=== PATIENT | male | born 1940 | race Caucasian/White ===

== ENCOUNTER 2017-08-11 12:24 | Outpatient (CLI) | payer MEDICARE, BC ==
[2017-08-11 12:55] LABS: CRP (Inflammatory) Less than 0.50 mg/dL (= or < 0.5)
[2017-08-11 13:42] LABS: Hemoglobin 12.1 g/dL (14.0-18.0); Mean Corpuscular HGB CONC 32.2 g/dL (32.0-36.0); Mean Corpuscular Hemoglobin 35.1 pg (27.0-31.0); Mean Platelet Volume 8.4 fL (7.4-10.4); Platelet Count 145 thou/uL (130-400); RBC Distribution Width 12.1 % (11.5-14.5); Red Blood Cell (RBC) Count 3.44 mill/uL (4.70-6.10); White Blood Cell (WBC) Count 5.6 thou/uL (4.8-10.8)
== END 2017-08-11 12:25 | disposition home or self-care (01) ==
LOC: NAVSJIPCSP 12:24
PROVIDERS: ATTEND Podiatrist Foot & Ankle Surgery
DX: R60.9 Edema, unspecified (principal)
CPT/HCPCS: 36415; 84550; 85027; 85652; 86140

== ENCOUNTER 2020-10-24 22:35 | Emergency (ER) | payer MEDICARE, BC ==
[2020-10-24] MEDS ORDERED: Ibuprofen 800 MG TAB ONE (23:09)
[2020-10-24] MEDS ORDERED: Sodium Chloride 0.9% 1,000 ML ONE (23:09)
[2020-10-24 23:16] LABS: #Basophils 0.1 thou/uL (0.0-0.2); #Eosinphils 0.1 thou/uL (0.0-0.7); #Lymphocytes 0.2 thou/uL (1.20-3.40); #Monocytes 0.5 thou/uL (0.11-0.59); #Neutrophils 11.2 thou/uL (1.40-6.50); %Basophils 0.5 % (0.0-1.0); %Eosinophils 1.2 % (0.0-10.0); %Lymphocytes 1.7 % (21.0-51.0); %Monocytes 4.1 % (0.0-10.0); %Neutrophils 92.4 % (42.0-75.0); Hemoglobin 12.9 g/dL (14.0-18.0); Mean Corpuscular HGB CONC 32.5 g/dL (32.0-36.0); Mean Corpuscular Hemoglobin 33.9 pg (27.0-31.0); Mean Platelet Volume 7.5 fL (7.4-10.4); Platelet Count 176 thou/uL (130-400); RBC Distribution Width 13.2 % (11.5-14.5); Red Blood Cell (RBC) Count 3.81 mill/uL (4.70-6.10); White Blood Cell (WBC) Count 12.1 thou/uL (4.8-10.8)
[2020-10-24 23:34] LABS: ALT (SGPT) 9 U/L (8-55); AST (SGOT) 15 U/L (5-34); Albumin 3.5 g/dL (3.4-4.8); Alkaline Phosphatase 70 U/L (40-110); Anion Gap 15 mmol/L (10-20); BUN (Urea Nitrogen) 12 mg/dL (8.4-25.7); Bilirubin, Total 0.6 mg/dL (0.2-1.2); Calc. Creatinine Clearance 0 mL/min (70-130); Calcium 8.3 mg/dL (7.8-10.44); Carbon Dioxide 20 mmol/L (23-31); Chloride 109 mmol/L (98-107); Globulin 2.7 g/dL (2.4-3.5); Glucose 117 mg/dL (83-110); Potassium 3.6 mmol/L (3.5-5.1); Protein, Total 6.2 g/dL (5.8-8.1); Sodium 140 mmol/L (136-145)
[2020-10-25] MEDS ORDERED: Sodium Chloride 0.9% 1,000 ML ONE (00:30)
[2020-10-25 00:50] LABS: Clarity Clear (Clear)
[2020-10-25 00:51] LABS: Leukocyte Unable to Interpret (Negative); Nitrite Unable to Interpret (Negative)
[2020-10-25 00:52] LABS: Bilirubin Unable to Interpret (Negative); Blood, Urine Unable to Interpret (Negative); Glucose, Urine (Dipstick) Unable to Interpret mg/dL (Negative); Ketone, Urine Unable to Interpret mg/dL (Negative); Protein, Urine (Dipstick) Unable to Interpret mg/dL (Neg-Trace); Urobilinogen UNABLE TO INTERPRET mg/dL (Less than 2)
[2020-10-25 00:54] LABS: Bacteria/HPF 2+ HPF (None Seen)
[2020-10-25] MEDS ORDERED: Cefepime 2 GM VIAL ONE (01:07)
[2020-10-25] MEDS ORDERED: Sodium Chloride 0.9% 100 ML ONE (01:07)
[2020-10-25] MEDS ORDERED: Acetaminophen 325 MG TAB PO PRN (02:45)
[2020-10-25] MEDS ORDERED: Sodium Chloride 0.9% 1,000 ML IV SCH (02:45)
[2020-10-25 02:46] LABS: SARS-CoV-2 NAA Rapid Test Not Detected (NotDetected)
== END 2020-10-25 01:51 | disposition critical access hospital (66) ==
LOC: NAV ERS 22:35
DX: A41.9 Sepsis, unspecified organism (principal); N39.0 Urinary tract infection, site not specified; Z20.828 Contact with and (suspected) exposure to other viral communicable diseases; I10 Essential (primary) hypertension; E78.00 Pure hypercholesterolemia, unspecified; Z79.899 Other long term (current) drug therapy; Z79.82 Long term (current) use of aspirin
CPT/HCPCS: 0240U; 80053; 81001; 83605; 84484; 85025; 87040; 87077; 87086; 87149; 93005; J0692; J3490; J7050

== ENCOUNTER 2020-10-25 01:48 | Inpatient (IN) | payer MEDICARE, BC ==
[2020-10-25] MEDS: Sodium Chloride 0.9% 1,000 ML IV SCH ×2 (04:08→09:00)
[2020-10-25] MEDS: Lisinopril 20 MG TAB PO SCH ×2 (08:56→19:59)
[2020-10-25] MEDS: Apixaban 5 MG TAB PO SCH ×2 (08:56→19:59)
[2020-10-25] MEDS: Carvedilol 6.25 MG TAB PO SCH ×2 (08:56→20:03)
[2020-10-25] MEDS: Amlodipine 5 MG TAB PO SCH (08:57)
[2020-10-25] MEDS: Ondansetron ODT 4 MG TAB PO PRN ×2 (09:00→22:08)
--- NOTE | 2020-10-25 10:20 | HP ---
HISTORY OF PRESENT ILLNESS: This is a 80-year-old male, who presented to [facility]'s ER with fever, chills, and hematuria. The patient was worked up in that ED and found to have a UTI causing hematuria. He was started on cefepime and fluids. The patient had a fever above 101. The patient was admitted to acute bed here at [facility] for continued management of UTI. The patient is on Eliquis for past medical history of atrial fibrillation and this may be contributing to his hematuria. The patient has no blood clots in his urine. REVIEW OF SYSTEMS: GENERAL: Denies any fever or chills. CARDIOVASCULAR: Denies any chest pain, shortness of breath, or diaphoresis. PULMONARY: Does reports some wheezing from time to time. Denies any chest pain. GASTROINTESTINAL: Reports nausea and vomiting at this time. Denies any diarrhea or constipation. GENITOURINARY: Reports hematuria and dysuria. PAST MEDICAL HISTORY: Atrial fibrillation; hypertension; CAD, status post CABG in 2001; hyperlipidemia; GERD; and osteoarthritis. PAST SURGICAL HISTORY: CABG with a quadruple bypass in 2001, right knee arthroscopy in 2011, left knee arthroscopy in 2011, atrial fibrillation ablation in 2014, and anterior cervical diskectomy and fusion for spinal stenosis in 2016. FAMILY HISTORY: Noncontributory. SOCIAL HISTORY: Former smoker. HOME MEDICATIONS: 1. Aspirin 81 mg one tab p.o. at bedtime. 2. Coreg 12.5 b.i.d. 3. Eliquis 5 mg b.i.d. 4. Lisinopril 20 mg p.o. b.i.d. 5. Norvasc 10 mg daily. PHYSICAL EXAMINATION: VITAL SIGNS: Temperature now 98.7, pulse 74, respirations 20, O2 saturations 94% on room air, and blood pressure 125/61 to 140/66. OBJECTIVE: Well-appearing, obese 80-year-old male, lying in bed, in no acute distress, sitting up, eating with food in front of him, but he does not have an appetite and does not want to eat at this time. NECK: No JVD. No thyromegaly. HEENT: PERRLA. EOMI. Pharynx clear with no erythema or exudate. CARDIOVASCULAR: Regular rate and rhythm. No murmurs, gallops, or rubs. RESPIRATIONS: Slight expiratory wheeze on the right, clear on the left. GASTROINTESTINAL: Soft with mild suprapubic tenderness. Nontender elsewhere. Bowel sounds positive in all 4 quadrants. NEUROLOGIC: Alert and oriented x4. No gross neurologic lesions. LABORATORY DATA: White blood cells 12.1, hemoglobin 12.9, hematocrit 39.8, and platelets 176. Sodium 140, potassium 3.6, chloride 209, bicarb 20, BUN 12, creatinine 0.79, GFR greater than 90, and glucose 117. Urine rbc's 7 to 10, wbc's 11 to 12, squames 4 to 6, bacteria 2+ with hyaline casts as well as nitrite, unable to interpret due to the patient's hematuria. ASSESSMENT: 1. Urinary tract infection, on IV antibiotics, improving, afebrile. 2. Hypertension. 3. Atrial fibrillation, on Eliquis. 4. Hyperlipidemia. 5. Nausea and vomiting. 6. Hematuria. PLAN: 1. Continue cefepime at this time 2 g b.i.d. Continue IV fluids at 150. We will decrease to 100 when this bag is finished. 2. Continue Norvasc, lisinopril, Coreg, and apixaban for atrial fibrillation and hypertension. 3. DVT prophylaxis with Eliquis. 4. GI prophylaxis not indicated. 5. Ondansetron for nausea and vomiting. 6. Continue to monitor vitals. We will get repeat labs in the morning. 7. I anticipate discharge either tomorrow or Tuesday. 8. The patient is on Eliquis, however, which would explain his hematuria along with his cystitis. The patient has no blood clots and is urinating well on his own. We will continue to monitor this and have a repeat urinalysis with cytology as an outpatient. Job ID: [id number]
[2020-10-25] MEDS: Cefepime 2 GM in Sodium Chloride 0.9% 100 ML IVPB SCH (12:53)
[2020-10-25] MEDS ORDERED: Furosemide 40 MG TAB PO SCH ×2 (16:00→19:00)
[2020-10-25] MEDS ORDERED: Phenazopyridine HCl 97.5 MG TABLET PO PRN (16:39)
[2020-10-25 19:42] LABS: Mean Corpuscular HGB CONC 30.9 g/dL (32.0-36.0); Mean Platelet Volume 6.8 fL (7.4-10.4); Platelet Count 172 thou/uL (130-400); RBC Distribution Width 13.6 % (11.5-14.5); Red Blood Cell (RBC) Count 3.63 mill/uL (4.70-6.10); White Blood Cell (WBC) Count 13.4 thou/uL (4.8-10.8)
[2020-10-25 19:50] LABS: ALT (SGPT) 9 U/L (8-55); AST (SGOT) 18 U/L (5-34); Albumin 3.3 g/dL (3.4-4.8); Alkaline Phosphatase 58 U/L (40-110); Anion Gap 14 mmol/L (10-20); BUN (Urea Nitrogen) 16 mg/dL (8.4-25.7); Bilirubin, Total 0.5 mg/dL (0.2-1.2); Calc. Creatinine Clearance 93 mL/min (70-130); Calcium 7.5 mg/dL (7.8-10.44); Carbon Dioxide 19 mmol/L (23-31); Chloride 111 mmol/L (98-107); Globulin 2.7 g/dL (2.4-3.5); Glucose 125 mg/dL (83-110); Potassium 4.1 mmol/L (3.5-5.1); Sodium 140 mmol/L (136-145)
[2020-10-25 19:59] LABS: Band 9 % (5-11); Lymphocytes 5 % (21-51); MDiff Complete? YES; Macrocytosis SLIGHT = 6-15 cells (100X) (0-5/hpf); Monocytes 4 % (0-10); Neutrophil 82 % (42-75); Platelet Morphology Comment Appears Adequate
[2020-10-25] MEDS: Aspirin 325 MG TAB PO SCH (19:59)
[2020-10-26] MEDS: Cefepime 2 GM in Sodium Chloride 0.9% 100 ML IVPB SCH (01:06)
[2020-10-26 05:17] LABS: ALT (SGPT) 9 U/L (8-55); AST (SGOT) 16 U/L (5-34); Albumin 3.1 g/dL (3.4-4.8); Alkaline Phosphatase 56 U/L (40-110); Anion Gap 14 mmol/L (10-20); BUN (Urea Nitrogen) 21 mg/dL (8.4-25.7); Bilirubin, Total 0.4 mg/dL (0.2-1.2); Calc. Creatinine Clearance 71 mL/min (70-130); Calcium 7.3 mg/dL (7.8-10.44); Carbon Dioxide 19 mmol/L (23-31); Chloride 110 mmol/L (98-107); Globulin 2.6 g/dL (2.4-3.5); Glucose 113 mg/dL (83-110); Potassium 3.7 mmol/L (3.5-5.1); Protein, Total 5.7 g/dL (5.8-8.1); Sodium 139 mmol/L (136-145)
[2020-10-26 05:32] LABS: Hemoglobin 11.2 g/dL (14.0-18.0); Mean Corpuscular HGB CONC 31.2 g/dL (32.0-36.0); Mean Corpuscular Hemoglobin 33.5 pg (27.0-31.0); Mean Platelet Volume 9.4 fL (7.4-10.4); Platelet Count 150 thou/uL (130-400); RBC Distribution Width 13.4 % (11.5-14.5); Red Blood Cell (RBC) Count 3.35 mill/uL (4.70-6.10); White Blood Cell (WBC) Count 10.9 thou/uL (4.8-10.8)
[2020-10-26 05:33] LABS: Band 7 % (5-11); Lymphocytes 2 % (21-51); MDiff Complete? YES; Manual Diff?? YES; Monocytes 8 % (0-10); Neutrophil 83 % (42-75); Platelet Morphology Comment Appears Adequate; RBC Morphology Normal
[2020-10-26] MEDS ORDERED: Furosemide 20 MG TAB PO SCH (09:00)
[2020-10-26] MEDS: Carvedilol 6.25 MG TAB PO SCH ×2 (09:01→20:46)
[2020-10-26] MEDS: Apixaban 5 MG TAB PO SCH ×2 (09:02→20:45)
[2020-10-26] MEDS: Amlodipine 5 MG TAB PO SCH (09:02)
[2020-10-26] MEDS: Lisinopril 20 MG TAB PO SCH ×2 (09:02→20:45)
[2020-10-26] MEDS ORDERED: Ciprofloxacin 500 MG TAB PO SCH (10:15)
--- NOTE | 2020-10-26 10:16 | PRG ---
DATE OF SERVICE: 10/26/2020 SUBJECTIVE: The patient is a 80-year-old male, who is here for evaluation and treatment of a UTI with urosepsis. The patient yesterday was receiving IV fluids, and nursing staff noticed that patient was beginning to become edematous in his upper extremities and lower extremities. IV fluids were stopped at that time, and p.o. Lasix was given to the patient. He has since had over a liter of urine output overnight and yesterday combined. The patient did have some coarse breath sounds per nursing staff; however, that has improved as well as his edema improving. We have since stopped the IV fluids. REVIEW OF SYSTEMS: The patient reports nausea. Denies any fever, chills, cough, congestion, chest pain, palpitations, vomiting, or diarrhea. OBJECTIVE: VITAL SIGNS: Temperature 97.2 to 99.3, pulse 58 to 89, respirations 20, O2 sats 97 on 2-1/2 L nasal cannula, blood pressure 119/59 to 121/61. GENERAL: A 80-year-old male, sitting up in bed, in no acute distress. NECK: No JVD. No thyromegaly. CHEST: The patient does have coarse breath sounds in bilateral lung bases. No wheezing heard. HEART: Regular rate and rhythm. No murmurs, gallops, or rubs. GI: Soft, nontender to palpation. Bowel sounds positive in all four quadrants. No CVA tenderness. EXTREMITIES: Trace edema in bilateral shins. No edema in the upper extremities. LABORATORY WORK: White cells trending down from 13.4 yesterday to 10.9 today, hemoglobin 11.2, hematocrit 36.0, and platelets 150. Chemistry; sodium 139, potassium 3.7, chloride 110, CO2 of 19, BUN 21, creatinine 1.18, slightly up from 0.90 yesterday. Glucose 113. BNP 756. Blood cultures; the patient did have an outpatient blood culture on 10/17 that showed Enterococcus faecalis, which was [place] sensitive. The patient had a positive blood culture now in the ER with Enterococcus faecalis as well. We will treat the bacteremia Enterococcus faecalis with Cipro as the previous urine was sensitive to Cipro and transition the patient to oral. ASSESSMENT: 1. Urinary tract infection. Improving. Afebrile. Leukocytosis improving. Transitioning to p.o. medications. 2. Hypertension. 3. Atrial fibrillation, on Eliquis, rate controlled. 4. Hyperlipidemia. 5. Nausea and vomiting. 6. Hematuria. PLAN: 1. Transition the patient to Cipro 500 b.i.d. Follow up on any urine cultures and follow up with the sensitivities of the current blood culture. 2. Discontinue IV fluids. 3. We will give another Lasix dose as the patient is having coarse breath sounds. 4. DVT prophylaxis with Eliquis. 5. Continue Norvasc and lisinopril for hypertension. Blood pressure well controlled today. 6. Ondansetron for nausea and vomiting. 7. Given the patient's hematuria and persistent nausea and vomiting, we will get a CT with stone protocol to look for this as a cause for hematuria and nausea. 8. Continue to monitor vitals. Job ID: [id number]
--- NOTE | 2020-10-26 11:05 | CT ---
CT ABDOMEN AND PELVIS WITHOUT CONTRAST: Date: 10/26/2020 COMPARISON: 04/15/2015. HISTORY: Hematuria. History of kidney stone. TECHNIQUE: Multiple contiguous axial images were obtained in a CT of the abdomen and pelvis without c ontrast. Sagittal and coronal reformats were performed. FINDINGS: There is a 1.3 cm calcification in the lower pole of the right kidney which is nonobstructed. No uret eral calcifications are seen. Urinary bladder is predominantly decompressed without obvious focal abn ormality. There is a small amount of stranding change/fluid adjacent to the gallbladder and in the rebeca hepati s. The liver, left kidney, adrenal glands, spleen, and pancreas are unremarkable, although evaluation is limited without IV contrast. No free air is seen in the abdomen or pelvis. The large and small bowel are normal in caliber. Athero sclerotic calcifications are seen in the aorta. There is a small right pleural effusion with adjacent atelectasis. Degenerative changes are seen in t he spine. There is diffuse soft tissue anasarca. IMPRESSION: 1. Nonobstructing right kidney stone. 2. Small amount of fluid adjacent to the gallbladder. Inflammatory change of the gallbladder is a po ssibility. A right upper quadrant abdominal ultrasound is recommended for further evaluation of the g allbladder. POS: EAA
[2020-10-26] MEDS: Acetaminophen 325 MG TAB PO PRN (11:20)
[2020-10-26 13:35] VITALS: BMI 29.8
[2020-10-26] MEDS: Aspirin 325 MG TAB PO SCH (20:45)
[2020-10-26] MEDS: Ciprofloxacin 500 MG TAB PO SCH (20:45)
[2020-10-27 05:12] LABS: Hemoglobin 10.8 g/dL (14.0-18.0); Platelet Count 137 thou/uL (130-400)
[2020-10-27] MEDS: Ciprofloxacin 500 MG TAB PO SCH (05:38)
[2020-10-27] MEDS: Acetaminophen 325 MG TAB PO PRN (06:16)
[2020-10-27] MEDS: Amlodipine 5 MG TAB PO SCH (08:49)
[2020-10-27] MEDS: Lisinopril 20 MG TAB PO SCH (08:50)
[2020-10-27] MEDS: Apixaban 5 MG TAB PO SCH (08:50)
[2020-10-27] MEDS: Carvedilol 6.25 MG TAB PO SCH (08:50)
[2020-10-27 12:56] VITALS: BP 111/55; TEMP 98.1
[2020-10-27] MEDS ORDERED: Carvedilol 6.25 MG TAB PO SCH (17:00)
--- NOTE | 2020-10-28 01:20 | DIS ---
DATE OF ADMISSION: 10/25/2020 DATE OF DISCHARGE: 10/27/2020 FINAL DIAGNOSES: 1. Hemorrhagic cystitis secondary to Enterococcus faecalis. 2. Atrial fibrillation, rate controlled. 3. Coronary artery disease, status post coronary bypass graft. 4. 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 5. Recurrent atrial fibrillation despite ablation, on rate control and anticoagulation. 6. History of transient ischemic attack versus lacunar infarct many years ago. HOSPITAL COURSE: The patient is a very pleasant 80-year-old white male with a history of hypertension, paroxysmal atrial fibrillation, coronary artery disease, and distant lacunar infarct, who presented with hemorrhagic cystitis with fever, chills, hematuria. He subsequently was found to have temperature to 101 and a positive blood culture for enterococcus. He was initially started on cefepime with quick eradication of his fever and chills. His initial white count was elevated to 13,400, quickly improved to 10,900. Lactate was normal. BNP was elevated to 756. He did develop some mild fluid overload with fluid resuscitation for sepsis in the emergency room. However, his renal function stabilized with a BUN of 21, creatinine 1.18, and a GFR of 60. Sodium was 139, potassium 3.7, chloride 110, bicarb was 19. He never had any further nausea or vomiting. His hematuria resolved. He did have an episode of bradycardia and hypotension causing his carvedilol to be held, but he states that he has been taking only one lisinopril a day at home rather than the two he was taking here. He has been ambulating in the coles, felt well, has been switched to Cipro 500 twice daily, which previous urine culture showed the patient was sensitive to. He, therefore, has been felt to be stable to be discharged home to follow up with the urologist next month for recurrent hematuria. He did have a CT scan which showed a small nephrolithiasis with no obstruction or hydronephrosis. He will, therefore, be discharged home on his prehospitalization meds of amlodipine 10 mg daily, apixaban 5 twice daily, aspirin 325 daily. His carvedilol will be decreased from 12.5 twice daily to 6.25 twice daily and his lisinopril will be continued at the 20 mg daily he was taking at home. He will be continued on the ciprofloxacin that he was started here 500 mg twice daily for a full 10-day dose. He will follow up with the urologist next month and myself in 2 weeks. Job ID: [id number]
[2020-10-28] MEDS ORDERED: Lisinopril 20 MG TAB PO SCH (09:00)
--- NOTE | 2020-10-30 14:28 | PQF ---
CLINICAL DOCUMENTATION CLARIFICATION FORM: Dear : Eugene Chapman MD Date / Time: 10/30/2020 Please exercise your independent, professional judgment in responding to the clarification form. Clinical indicators are provided on the bottom of this form for your review Please check appropriate box(es): [x ] Sepsis due to: enterococcal uti [ ] Severe sepsis with associated acute organ dysfunction: [ ] Acute Respiratory Failure [ ] Acute Kidney injury w/o ATN [ ] Acute Kidney Injury w ATN [ ] Encephalopathy (metabolic) (septic) [ ] Disseminated Intravascular Coagulopathy (DIC) [ ] Hepatic Failure [ ] Additional/Other: please specify: [ ] Septic Shock [ ] Localized infection without sepsis [ ] SIRS due to non-infectious process (please specify etiology) [ ] with organ dysfunction [ ] without organ dysfunction [ ] Other diagnosis (Please specify if any) [ ] Unable to determine In addition, please specify: Present on Admission (POA): [x ] Yes [ ] No [ ] Unable to determine Physician Signature: Date/Time: For continuity of documentation, please document condition throughout progress notes and discharge summary. Thank You. To be completed by CDI/Coding staff for physician review: Present Clinical Indicators - Signs / Symptoms / Labs Results and Location in Medical Record [ ] Altered mental status, increased confusion, obtunded [x ] Fever or hypothermia (<96.8 F/36 C or > 100.4 F/38C) Fever - H&P on 10/25 [ ] Respiratory rate >20/min, hypoxemia, and or hypercapnia [ ] Heart Rate/Tachycardia (>90 bpm), SBP<100mmHg [x ] Evaluation and treatment of a UTI with urosepsis Progress notes on 10/26 [ ] Metabolic acidosis Lactic Acid >2mmol/L OR 36mg/dL, [ ] Oliguria , increase BUN/Cr, decreased GFR, elevated liver enzymes [ ] Coag abnormalities, thrombocytopenia plts <100k [ ] Shock-hypotension resistant to IV fluid boluses [x] WBC count (>12,000/mm^4 or <4000/mm^3 or 70% neuts, 10% bands) WBC-13.4 Laboratory on 10/25 [x] Mild fluid overload & with fluid resuscitation for sepsis in the emergency room Discharge summary on 10/27 [x] He subsequently was found to have temperature to 101 & a positive blood culture for enterococcus Discharge summary on 10/27 Present Risk Factors Results and Location in Medical Record [ ] Infection/Bacteremia [x ] Pneumonia, UTI, infected wound, gangrenous gall bladder Diabetes or Cancer UTI- H&P on 10/25 [ ] Surgery / surgical instrumentation / trauma Ruptured/perforated bowel, ruptured appendix [ ] Immunosuppression [x ] Advancing Age 80 yrs H&P on 10/25 Present Treatments Results and Location in Medical Record [ ] Initiation Sepsis Protocol ICU [ ] Daily CBC, blood/sputum/wound cx [ ] ID Consult [x ] Ciprofloxacin 500 mg PO Medication on 10/26,10/27 [ ] IV ?uids [ ] Vasopressors, meds [ ] Consultants; ID, GI, Pulmonary, Hematology CDS/Field Staff Manager Signature: AAS Phone #: Date/Time: 10/30/2020 This is a permanent part of the Medical Record [facility]
== END 2020-10-27 13:48 | disposition home or self-care (01) | DRG 872 ==
LOC: NAV ACUTE 01:48
PROVIDERS: ADMIT Internal Medicine; ATTEND Internal Medicine
DX: A41.81 Sepsis due to Enterococcus (principal); N30.91 Cystitis, unspecified with hematuria; B95.2 Enterococcus as the cause of diseases classified elsewhere; I10 Essential (primary) hypertension; E78.5 Hyperlipidemia, unspecified; I25.10 Atherosclerotic heart disease of native coronary artery without angina pectoris; I48.91 Unspecified atrial fibrillation; K21.9 Gastro-esophageal reflux disease without esophagitis; R11.2 Nausea with vomiting, unspecified; Z95.1 Presence of aortocoronary bypass graft; Z98.890 Other specified postprocedural states; Z79.82 Long term (current) use of aspirin; Z79.01 Long term (current) use of anticoagulants; Z79.899 Other long term (current) drug therapy; Z87.891 Personal history of nicotine dependence; M17.0 Bilateral primary osteoarthritis of knee; Z86.73 Personal history of transient ischemic attack (TIA), and cerebral infarction without residual deficits
CPT/HCPCS: 0240U; 36415; 51701; 74176; 80053; 81001; 82565; 83605; 83880; 84484; 85014; 85018; 85025; 85049; 87040; 87077; 87086; 87149; 87186; 93005; 96365; J0692; J3490; J7050; Q0162

== ENCOUNTER 2021-04-29 12:31 | Emergency (ER) | payer MEDICARE, BC ==
[2021-04-29 13:12] LABS: ALT (SGPT) 56 U/L (8-55); AST (SGOT) 178 U/L (5-34); Albumin 3.1 g/dL (3.4-4.8); Alkaline Phosphatase 66 U/L (40-110); Anion Gap 12 mmol/L (10-20); BUN (Urea Nitrogen) 7 mg/dL (8.4-25.7); Bilirubin, Total 0.4 mg/dL (0.2-1.2); Calc. Creatinine Clearance 0 mL/min (70-130); Carbon Dioxide 23 mmol/L (23-31); Chloride 107 mmol/L (98-107); Globulin 2.9 g/dL (2.4-3.5); Glucose 116 mg/dL (83-110); Potassium 3.3 mmol/L (3.5-5.1); Sodium 139 mmol/L (136-145)
[2021-04-29 13:17] LABS: #Basophils 0.1 thou/uL (0.0-0.2); #Eosinphils 0.4 thou/uL (0.0-0.7); #Monocytes 0.5 thou/uL (0.11-0.59); %Basophils 0.9 % (0.0-1.0); %Eosinophils 4.1 % (0.0-10.0); %Lymphocytes 10.9 % (21.0-51.0); %Monocytes 5.1 % (0.0-10.0); Mean Corpuscular HGB CONC 31.2 g/dL (32.0-36.0); Mean Corpuscular Hemoglobin 32.5 pg (27.0-31.0); Mean Platelet Volume 8.3 fL (7.4-10.4); Platelet Count 164 thou/uL (130-400); RBC Distribution Width 12.2 % (11.5-14.5); Red Blood Cell (RBC) Count 3.69 mill/uL (4.70-6.10); White Blood Cell (WBC) Count 8.9 thou/uL (4.8-10.8)
[2021-04-29 13:32] LABS: CKMB 13.9 ng/mL (0-6.6)
[2021-04-29] MEDS ORDERED: Sodium Chloride 0.9% 1,000 ML ONE (14:03)
[2021-04-29 19:40] LABS: CKMB 15.5 ng/mL (0-6.6)
[2021-04-29 20:41] LABS: Bilirubin Negative (Negative); Blood, Urine Trace (Negative); Clarity Clear (Clear); Glucose, Urine (Dipstick) Negative (Negative); Ketone, Urine 80 mg/dL (Negative); Leukocyte Trace (Negative); Nitrite Negative (Negative); Protein, Urine (Dipstick) 30 mg/dL (Neg-Trace); Specific Gravity, Urine 1.025 (1.005-1.030); Urobilinogen 0.2 mg/dL (Less than 2); pH, Urine 6.5 (5.0-9.0)
[2021-04-29 20:48] LABS: RBC/HPF 0-3 HPF (0-3); Squamous Epithelial 0-3 HPF (0-3)
[2021-04-29 20:49] LABS: Bacteria/HPF 1+ HPF (None Seen)
[2021-04-29 22:53] LABS: CKMB 16.6 ng/mL (0-6.6)
[2021-04-29] MEDS ORDERED: Ondansetron PF 4 MG/2 ML Vial ONE (23:27)
== END 2021-04-30 00:07 | disposition short-term general hospital (02) ==
LOC: NAV ERS 12:31
DX: R53.1 Weakness (principal); J93.9 Pneumothorax, unspecified; R77.8 Other specified abnormalities of plasma proteins; R94.31 Abnormal electrocardiogram [ECG] [EKG]; I10 Essential (primary) hypertension; E78.00 Pure hypercholesterolemia, unspecified; Z79.02 Long term (current) use of antithrombotics/antiplatelets; Z79.82 Long term (current) use of aspirin; Z79.899 Other long term (current) drug therapy
CPT/HCPCS: 70450; 71045; 80053; 81003; 81015; 82553; 83605; 84484; 85025; 87086; 93005; 94760; 96374; J2405; J7050

== ENCOUNTER 2021-05-06 10:49 | Inpatient (IN) | payer MEDICARE, BC ==
[2021-05-06] MEDS ORDERED: Pepto Bismol Chew TAB PO PRN (17:56)
[2021-05-06] MEDS: Lisinopril 20 MG TAB PO SCH (21:17)
[2021-05-06] MEDS: Tamsulosin HCl 0.4 MG CAP PO SCH (21:17)
[2021-05-06] MEDS: Apixaban 5 MG TAB PO SCH (21:17)
[2021-05-07 05:36] LABS: ALT (SGPT) 30 U/L (8-55); AST (SGOT) 35 U/L (5-34); Albumin 2.8 g/dL (3.4-4.8); Alkaline Phosphatase 62 U/L (40-110); Anion Gap 11 mmol/L (10-20); BUN (Urea Nitrogen) 8 mg/dL (8.4-25.7); Bilirubin, Total 0.2 mg/dL (0.2-1.2); Calc. Creatinine Clearance 114 mL/min (70-130); Calcium 7.9 mg/dL (7.8-10.44); Carbon Dioxide 24 mmol/L (23-31); Chloride 109 mmol/L (98-107); Globulin 2.8 g/dL (2.4-3.5); Glucose 108 mg/dL (83-110); Potassium 3.5 mmol/L (3.5-5.1); Protein, Total 5.6 g/dL (5.8-8.1); Sodium 140 mmol/L (136-145)
[2021-05-07 05:51] LABS: #Basophils 0.1 thou/uL (0.0-0.2); #Eosinphils 0.6 thou/uL (0.0-0.7); #Lymphocytes 1.2 thou/uL (1.20-3.40); #Monocytes 0.5 thou/uL (0.11-0.59); #Neutrophils 3.1 thou/uL (1.40-6.50); %Basophils 1.3 % (0.0-1.0); %Lymphocytes 22.3 % (21.0-51.0); %Monocytes 9.6 % (0.0-10.0); %Neutrophils 55.8 % (42.0-75.0); Hemoglobin 10.9 g/dL (14.0-18.0); Mean Corpuscular HGB CONC 30.7 g/dL (32.0-36.0); Mean Corpuscular Hemoglobin 32.3 pg (27.0-31.0); Mean Platelet Volume 7.9 fL (7.4-10.4); Platelet Count 188 thou/uL (130-400); RBC Distribution Width 12.3 % (11.5-14.5); Red Blood Cell (RBC) Count 3.36 mill/uL (4.70-6.10); White Blood Cell (WBC) Count 5.6 thou/uL (4.8-10.8)
[2021-05-07 06:21] LABS: Rouleaux Formation SLIGHT = 1-5 cells (100X) (None Seen)
[2021-05-07] MEDS: Cyanocobalamin (Vitamin B-12) 1,000 MCG TAB PO SCH (08:44)
[2021-05-07] MEDS: Folic Acid 1 MG TAB PO SCH (08:44)
[2021-05-07] MEDS: Lisinopril 20 MG TAB PO SCH ×2 (08:44→20:57)
[2021-05-07] MEDS: Apixaban 5 MG TAB PO SCH ×2 (08:44→20:58)
[2021-05-07] MEDS: Aspirin 81 mg Enteric Coated Tablet PO SCH (08:44)
[2021-05-07] MEDS: Multivitamin W/ Minerals 1 TAB PO SCH (08:45)
[2021-05-07] MEDS: Rosuvastatin 10 MG TAB PO SCH (08:45)
[2021-05-07] MEDS: Carvedilol 6.25 MG TAB PO SCH ×2 (08:49→17:10)
[2021-05-07] MEDS: Tamsulosin HCl 0.4 MG CAP PO SCH (20:58)
[2021-05-08] MEDS: Carvedilol 6.25 MG TAB PO SCH ×2 (08:48→16:12)
[2021-05-08] MEDS: Cyanocobalamin (Vitamin B-12) 1,000 MCG TAB PO SCH (08:48)
[2021-05-08] MEDS: Multivitamin W/ Minerals 1 TAB PO SCH (08:48)
[2021-05-08] MEDS: Folic Acid 1 MG TAB PO SCH (08:48)
[2021-05-08] MEDS: Rosuvastatin 10 MG TAB PO SCH (08:48)
[2021-05-08] MEDS: Aspirin 81 mg Enteric Coated Tablet PO SCH (08:48)
[2021-05-08] MEDS: Apixaban 5 MG TAB PO SCH ×2 (08:48→21:06)
[2021-05-08] MEDS: Lisinopril 20 MG TAB PO SCH ×2 (08:49→21:06)
[2021-05-08] MEDS: Tamsulosin HCl 0.4 MG CAP PO SCH (21:06)
[2021-05-09] MEDS: Lisinopril 20 MG TAB PO SCH ×2 (09:06→21:15)
[2021-05-09] MEDS: Cyanocobalamin (Vitamin B-12) 1,000 MCG TAB PO SCH (09:06)
[2021-05-09] MEDS: Aspirin 81 mg Enteric Coated Tablet PO SCH (09:06)
[2021-05-09] MEDS: Rosuvastatin 10 MG TAB PO SCH (09:07)
[2021-05-09] MEDS: Apixaban 5 MG TAB PO SCH ×2 (09:07→21:15)
[2021-05-09] MEDS: Multivitamin W/ Minerals 1 TAB PO SCH (09:07)
[2021-05-09] MEDS: Folic Acid 1 MG TAB PO SCH (09:07)
[2021-05-09] MEDS: Carvedilol 6.25 MG TAB PO SCH ×2 (09:07→18:05)
[2021-05-09] MEDS: Tamsulosin HCl 0.4 MG CAP PO SCH (21:15)
[2021-05-10] MEDS: Rosuvastatin 10 MG TAB PO SCH (08:48)
[2021-05-10] MEDS: Carvedilol 6.25 MG TAB PO SCH ×2 (08:48→17:38)
[2021-05-10] MEDS: Cyanocobalamin (Vitamin B-12) 1,000 MCG TAB PO SCH (08:49)
[2021-05-10] MEDS: Aspirin 81 mg Enteric Coated Tablet PO SCH (08:49)
[2021-05-10] MEDS: Apixaban 5 MG TAB PO SCH ×2 (08:49→21:05)
[2021-05-10] MEDS: Folic Acid 1 MG TAB PO SCH (08:49)
[2021-05-10] MEDS: Lisinopril 20 MG TAB PO SCH ×2 (08:49→21:05)
[2021-05-10] MEDS: Multivitamin W/ Minerals 1 TAB PO SCH (08:49)
[2021-05-10] MEDS: Tamsulosin HCl 0.4 MG CAP PO SCH (21:05)
[2021-05-11] MEDS: Carvedilol 6.25 MG TAB PO SCH ×2 (08:11→16:12)
[2021-05-11] MEDS: Multivitamin W/ Minerals 1 TAB PO SCH (08:11)
[2021-05-11] MEDS: Rosuvastatin 10 MG TAB PO SCH (08:12)
[2021-05-11] MEDS: Cyanocobalamin (Vitamin B-12) 1,000 MCG TAB PO SCH (08:12)
[2021-05-11] MEDS: Lisinopril 20 MG TAB PO SCH ×2 (08:12→20:52)
[2021-05-11] MEDS: Apixaban 5 MG TAB PO SCH ×2 (08:12→20:53)
[2021-05-11] MEDS: Aspirin 81 mg Enteric Coated Tablet PO SCH (08:12)
[2021-05-11] MEDS: Folic Acid 1 MG TAB PO SCH (08:12)
[2021-05-11] MEDS: Tamsulosin HCl 0.4 MG CAP PO SCH (20:52)
[2021-05-11] MEDS: Melatonin 3 MG TAB PO SCH (20:53)
[2021-05-11] MEDS: hydrOXYzine 25 MG TAB PO PRN (20:55)
[2021-05-12] MEDS: Carvedilol 6.25 MG TAB PO SCH ×2 (07:46→18:13)
[2021-05-12] MEDS: Cyanocobalamin (Vitamin B-12) 1,000 MCG TAB PO SCH (07:47)
[2021-05-12] MEDS: Multivitamin W/ Minerals 1 TAB PO SCH (07:47)
[2021-05-12] MEDS: Folic Acid 1 MG TAB PO SCH (07:47)
[2021-05-12] MEDS: Lisinopril 20 MG TAB PO SCH ×2 (07:47→20:19)
[2021-05-12] MEDS: Aspirin 81 mg Enteric Coated Tablet PO SCH (07:47)
[2021-05-12] MEDS: Apixaban 5 MG TAB PO SCH ×2 (07:48→20:19)
[2021-05-12] MEDS: Rosuvastatin 10 MG TAB PO SCH (07:48)
[2021-05-12] MEDS: Tamsulosin HCl 0.4 MG CAP PO SCH (20:19)
[2021-05-12] MEDS: Melatonin 3 MG TAB PO SCH (20:19)
[2021-05-12] MEDS: hydrOXYzine 25 MG TAB PO PRN (20:24)
[2021-05-13] MEDS: Cyanocobalamin (Vitamin B-12) 1,000 MCG TAB PO SCH (07:59)
[2021-05-13] MEDS: Folic Acid 1 MG TAB PO SCH (07:59)
[2021-05-13] MEDS: Carvedilol 6.25 MG TAB PO SCH ×2 (07:59→16:42)
[2021-05-13] MEDS: Rosuvastatin 10 MG TAB PO SCH (07:59)
[2021-05-13] MEDS: Lisinopril 20 MG TAB PO SCH ×2 (07:59→20:55)
[2021-05-13] MEDS: Aspirin 81 mg Enteric Coated Tablet PO SCH (07:59)
[2021-05-13] MEDS: Apixaban 5 MG TAB PO SCH ×2 (07:59→20:55)
[2021-05-13] MEDS: Multivitamin W/ Minerals 1 TAB PO SCH (07:59)
[2021-05-13] MEDS: Melatonin 3 MG TAB PO SCH (20:54)
[2021-05-13] MEDS: Tamsulosin HCl 0.4 MG CAP PO SCH (20:55)
[2021-05-13] MEDS: Famotidine 20 MG TAB PO SCH (20:55)
[2021-05-14] MEDS: Aspirin 81 mg Enteric Coated Tablet PO SCH (08:09)
[2021-05-14] MEDS: Multivitamin W/ Minerals 1 TAB PO SCH (08:09)
[2021-05-14] MEDS: Famotidine 20 MG TAB PO SCH ×2 (08:09→20:57)
[2021-05-14] MEDS: Carvedilol 6.25 MG TAB PO SCH ×2 (08:09→16:49)
[2021-05-14] MEDS: Cyanocobalamin (Vitamin B-12) 1,000 MCG TAB PO SCH (08:09)
[2021-05-14] MEDS: Lisinopril 20 MG TAB PO SCH ×2 (08:09→20:57)
[2021-05-14] MEDS: Folic Acid 1 MG TAB PO SCH (08:10)
[2021-05-14] MEDS: Apixaban 5 MG TAB PO SCH ×2 (08:10→20:57)
[2021-05-14] MEDS: Rosuvastatin 10 MG TAB PO SCH (08:10)
[2021-05-14] MEDS: Melatonin 3 MG TAB PO SCH (20:56)
[2021-05-14] MEDS: hydrOXYzine 25 MG TAB PO PRN (20:56)
[2021-05-14] MEDS: Tamsulosin HCl 0.4 MG CAP PO SCH (20:56)
[2021-05-15 05:29] LABS: Hemoglobin 10.3 g/dL (14.0-18.0); Platelet Count 189 thou/uL (130-400)
[2021-05-15 05:46] LABS: Calc. Creatinine Clearance 114 mL/min (70-130)
[2021-05-15] MEDS: Carvedilol 6.25 MG TAB PO SCH ×2 (08:12→17:28)
[2021-05-15] MEDS: Apixaban 5 MG TAB PO SCH ×2 (08:12→20:45)
[2021-05-15] MEDS: Aspirin 81 mg Enteric Coated Tablet PO SCH (08:13)
[2021-05-15] MEDS: Folic Acid 1 MG TAB PO SCH (08:13)
[2021-05-15] MEDS: Multivitamin W/ Minerals 1 TAB PO SCH (08:13)
[2021-05-15] MEDS: Famotidine 20 MG TAB PO SCH ×2 (08:13→20:45)
[2021-05-15] MEDS: Rosuvastatin 10 MG TAB PO SCH (08:13)
[2021-05-15] MEDS: Cyanocobalamin (Vitamin B-12) 1,000 MCG TAB PO SCH (08:13)
[2021-05-15] MEDS: Lisinopril 20 MG TAB PO SCH ×2 (08:13→20:45)
[2021-05-15] MEDS: Melatonin 3 MG TAB PO SCH (20:44)
[2021-05-15] MEDS: hydrOXYzine 25 MG TAB PO PRN (20:44)
[2021-05-15] MEDS: Tamsulosin HCl 0.4 MG CAP PO SCH (20:45)
[2021-05-16] MEDS: Famotidine 20 MG TAB PO SCH ×2 (08:46→20:57)
[2021-05-16] MEDS: Apixaban 5 MG TAB PO SCH ×2 (08:46→20:56)
[2021-05-16] MEDS: Rosuvastatin 10 MG TAB PO SCH (08:46)
[2021-05-16] MEDS: Aspirin 81 mg Enteric Coated Tablet PO SCH (08:47)
[2021-05-16] MEDS: Multivitamin W/ Minerals 1 TAB PO SCH (08:47)
[2021-05-16] MEDS: Carvedilol 6.25 MG TAB PO SCH ×2 (08:47→17:21)
[2021-05-16] MEDS: Lisinopril 20 MG TAB PO SCH ×2 (08:47→20:56)
[2021-05-16] MEDS: Folic Acid 1 MG TAB PO SCH (08:48)
[2021-05-16] MEDS: Cyanocobalamin (Vitamin B-12) 1,000 MCG TAB PO SCH (08:48)
[2021-05-16] MEDS: Melatonin 3 MG TAB PO SCH (20:56)
[2021-05-16] MEDS: hydrOXYzine 25 MG TAB PO PRN (20:57)
[2021-05-16] MEDS: Tamsulosin HCl 0.4 MG CAP PO SCH (20:59)
[2021-05-17] MEDS: Carvedilol 6.25 MG TAB PO SCH ×2 (08:31→16:16)
[2021-05-17] MEDS: Famotidine 20 MG TAB PO SCH ×2 (08:32→21:09)
[2021-05-17] MEDS: Aspirin 81 mg Enteric Coated Tablet PO SCH (08:32)
[2021-05-17] MEDS: Multivitamin W/ Minerals 1 TAB PO SCH (08:32)
[2021-05-17] MEDS: Rosuvastatin 10 MG TAB PO SCH (08:32)
[2021-05-17] MEDS: Apixaban 5 MG TAB PO SCH ×2 (08:33→21:09)
[2021-05-17] MEDS: Cyanocobalamin (Vitamin B-12) 1,000 MCG TAB PO SCH (08:33)
[2021-05-17] MEDS: Folic Acid 1 MG TAB PO SCH (08:33)
[2021-05-17] MEDS: Lisinopril 20 MG TAB PO SCH ×2 (08:33→21:09)
[2021-05-17] MEDS: Hydrochlorothiazide 25 MG TAB PO SCH (09:47)
[2021-05-17] MEDS: hydrOXYzine 25 MG TAB PO PRN (21:09)
[2021-05-17] MEDS: Melatonin 3 MG TAB PO SCH (21:09)
[2021-05-17] MEDS: Tamsulosin HCl 0.4 MG CAP PO SCH (21:09)
[2021-05-18] MEDS: Folic Acid 1 MG TAB PO SCH (09:36)
[2021-05-18] MEDS: Multivitamin W/ Minerals 1 TAB PO SCH (09:36)
[2021-05-18] MEDS: Lisinopril 20 MG TAB PO SCH ×2 (09:36→21:19)
[2021-05-18] MEDS: Carvedilol 6.25 MG TAB PO SCH ×2 (09:36→17:53)
[2021-05-18] MEDS: Cyanocobalamin (Vitamin B-12) 1,000 MCG TAB PO SCH (09:36)
[2021-05-18] MEDS: Aspirin 81 mg Enteric Coated Tablet PO SCH (09:36)
[2021-05-18] MEDS: Famotidine 20 MG TAB PO SCH ×2 (09:36→21:19)
[2021-05-18] MEDS: Apixaban 5 MG TAB PO SCH ×2 (09:37→21:20)
[2021-05-18] MEDS: Rosuvastatin 10 MG TAB PO SCH (09:37)
[2021-05-18] MEDS: Hydrochlorothiazide 25 MG TAB PO SCH ×2 (11:06→21:19)
[2021-05-18] MEDS: Tamsulosin HCl 0.4 MG CAP PO SCH (21:20)
[2021-05-18] MEDS: Melatonin 3 MG TAB PO SCH ×2 (22:30→23:36)
[2021-05-19] MEDS: Aspirin 81 mg Enteric Coated Tablet PO SCH (09:15)
[2021-05-19] MEDS: Apixaban 5 MG TAB PO SCH ×2 (09:15→21:08)
[2021-05-19] MEDS: Cyanocobalamin (Vitamin B-12) 1,000 MCG TAB PO SCH (09:15)
[2021-05-19] MEDS: Carvedilol 6.25 MG TAB PO SCH ×2 (09:15→17:58)
[2021-05-19] MEDS: Lisinopril 20 MG TAB PO SCH ×2 (09:15→21:08)
[2021-05-19] MEDS: Multivitamin W/ Minerals 1 TAB PO SCH (09:15)
[2021-05-19] MEDS: Folic Acid 1 MG TAB PO SCH (09:15)
[2021-05-19] MEDS: Rosuvastatin 10 MG TAB PO SCH (09:15)
[2021-05-19] MEDS: Hydrochlorothiazide 25 MG TAB PO SCH ×2 (09:16→21:09)
[2021-05-19] MEDS: Famotidine 20 MG TAB PO SCH ×2 (09:16→21:08)
[2021-05-19] MEDS: Melatonin 3 MG TAB PO SCH (21:08)
[2021-05-19] MEDS: Tamsulosin HCl 0.4 MG CAP PO SCH (21:09)
[2021-05-19] MEDS: hydrOXYzine 25 MG TAB PO PRN (21:09)
[2021-05-20] MEDS: Hydrochlorothiazide 25 MG TAB PO SCH ×2 (08:43→21:20)
[2021-05-20] MEDS: Carvedilol 6.25 MG TAB PO SCH ×2 (08:43→16:36)
[2021-05-20] MEDS: Lisinopril 20 MG TAB PO SCH ×2 (08:43→21:20)
[2021-05-20] MEDS: Rosuvastatin 10 MG TAB PO SCH (08:43)
[2021-05-20] MEDS: Famotidine 20 MG TAB PO SCH ×2 (08:43→21:20)
[2021-05-20] MEDS: Multivitamin W/ Minerals 1 TAB PO SCH (08:43)
[2021-05-20] MEDS: Aspirin 81 mg Enteric Coated Tablet PO SCH (08:43)
[2021-05-20] MEDS: Cyanocobalamin (Vitamin B-12) 1,000 MCG TAB PO SCH (08:43)
[2021-05-20] MEDS: Apixaban 5 MG TAB PO SCH ×2 (08:43→21:21)
[2021-05-20] MEDS: Folic Acid 1 MG TAB PO SCH (08:44)
[2021-05-20] MEDS: Ondansetron ODT 4 MG TAB PO PRN ×2 (10:39→16:39)
[2021-05-20 15:50] LABS: ALT (SGPT) 20 U/L (8-55); AST (SGOT) 32 U/L (5-34); Albumin 3.1 g/dL (3.4-4.8); Alkaline Phosphatase 61 U/L (40-110); Anion Gap 14 mmol/L (10-20); BUN (Urea Nitrogen) 9 mg/dL (8.4-25.7); Bilirubin, Total 0.2 mg/dL (0.2-1.2); Calc. Creatinine Clearance 104 mL/min (70-130); Calcium 9.1 mg/dL (7.8-10.44); Carbon Dioxide 26 mmol/L (23-31); Chloride 103 mmol/L (98-107); Globulin 3.2 g/dL (2.4-3.5); Glucose 109 mg/dL (83-110); Potassium 3.8 mmol/L (3.5-5.1); Protein, Total 6.3 g/dL (5.8-8.1); Sodium 139 mmol/L (136-145)
[2021-05-20 15:57] LABS: #Basophils 0.1 thou/uL (0.0-0.2); #Eosinphils 0.6 thou/uL (0.0-0.7); #Lymphocytes 1.1 thou/uL (1.20-3.40); #Monocytes 0.5 thou/uL (0.11-0.59); #Neutrophils 3.8 thou/uL (1.40-6.50); %Basophils 1.3 % (0.0-1.0); %Eosinophils 9.4 % (0.0-10.0); %Lymphocytes 18.6 % (21.0-51.0); %Monocytes 8.2 % (0.0-10.0); %Neutrophils 62.4 % (42.0-75.0); Hemoglobin 10.8 g/dL (14.0-18.0); Mean Corpuscular HGB CONC 30.8 g/dL (32.0-36.0); Mean Corpuscular Hemoglobin 32.3 pg (27.0-31.0); Mean Platelet Volume 8.8 fL (7.4-10.4); Platelet Count 204 thou/uL (130-400); RBC Distribution Width 12.1 % (11.5-14.5); Red Blood Cell (RBC) Count 3.34 mill/uL (4.70-6.10); White Blood Cell (WBC) Count 6.1 thou/uL (4.8-10.8)
[2021-05-20] MEDS: Tamsulosin HCl 0.4 MG CAP PO SCH (21:20)
[2021-05-20] MEDS: Melatonin 3 MG TAB PO SCH (21:21)
[2021-05-20] MEDS: hydrOXYzine 25 MG TAB PO PRN (21:21)
[2021-05-21] MEDS: Apixaban 5 MG TAB PO SCH ×2 (08:09→20:50)
[2021-05-21] MEDS: Aspirin 81 mg Enteric Coated Tablet PO SCH (08:09)
[2021-05-21] MEDS: Famotidine 20 MG TAB PO SCH ×2 (08:09→20:51)
[2021-05-21] MEDS: Carvedilol 6.25 MG TAB PO SCH ×2 (08:09→16:53)
[2021-05-21] MEDS: Folic Acid 1 MG TAB PO SCH (08:09)
[2021-05-21] MEDS: Hydrochlorothiazide 25 MG TAB PO SCH (08:10)
[2021-05-21] MEDS: Cyanocobalamin (Vitamin B-12) 1,000 MCG TAB PO SCH (08:10)
[2021-05-21] MEDS: Rosuvastatin 10 MG TAB PO SCH (08:10)
[2021-05-21] MEDS: Lisinopril 20 MG TAB PO SCH ×2 (08:10→20:50)
[2021-05-21] MEDS: Multivitamin W/ Minerals 1 TAB PO SCH (08:10)
[2021-05-21] MEDS: Tamsulosin HCl 0.4 MG CAP PO SCH (20:50)
[2021-05-21] MEDS: Melatonin 3 MG TAB PO SCH (20:51)
[2021-05-22] MEDS: Rosuvastatin 10 MG TAB PO SCH (09:02)
[2021-05-22] MEDS: Aspirin 81 mg Enteric Coated Tablet PO SCH (09:02)
[2021-05-22] MEDS: Multivitamin W/ Minerals 1 TAB PO SCH (09:02)
[2021-05-22] MEDS: Lisinopril 20 MG TAB PO SCH ×2 (09:03→21:12)
[2021-05-22] MEDS: Apixaban 5 MG TAB PO SCH ×2 (09:04→21:12)
[2021-05-22] MEDS: Cyanocobalamin (Vitamin B-12) 1,000 MCG TAB PO SCH (09:04)
[2021-05-22] MEDS: Carvedilol 6.25 MG TAB PO SCH ×2 (09:04→16:54)
[2021-05-22] MEDS: Famotidine 20 MG TAB PO SCH ×2 (09:06→21:12)
[2021-05-22] MEDS: Folic Acid 1 MG TAB PO SCH (09:06)
[2021-05-22] MEDS: Tamsulosin HCl 0.4 MG CAP PO SCH (21:12)
[2021-05-22] MEDS: Melatonin 3 MG TAB PO SCH (21:12)
[2021-05-23] MEDS: Cyanocobalamin (Vitamin B-12) 1,000 MCG TAB PO SCH (08:29)
[2021-05-23] MEDS: Aspirin 81 mg Enteric Coated Tablet PO SCH (08:29)
[2021-05-23] MEDS: Folic Acid 1 MG TAB PO SCH (08:29)
[2021-05-23] MEDS: Apixaban 5 MG TAB PO SCH ×2 (08:29→20:29)
[2021-05-23] MEDS: Rosuvastatin 10 MG TAB PO SCH (08:29)
[2021-05-23] MEDS: Multivitamin W/ Minerals 1 TAB PO SCH (08:29)
[2021-05-23] MEDS: Carvedilol 6.25 MG TAB PO SCH ×2 (08:30→16:59)
[2021-05-23] MEDS: Famotidine 20 MG TAB PO SCH ×2 (08:30→20:29)
[2021-05-23] MEDS: Lisinopril 20 MG TAB PO SCH ×2 (08:30→20:29)
[2021-05-23] MEDS ORDERED: Bisacodyl 5 MG TAB PO PRN (14:19)
[2021-05-23] MEDS: Melatonin 3 MG TAB PO SCH (20:28)
[2021-05-23] MEDS: Tamsulosin HCl 0.4 MG CAP PO SCH (20:29)
[2021-05-24 02:35] VITALS: BMI 24.6
[2021-05-24] MEDS: Rosuvastatin 10 MG TAB PO SCH (08:33)
[2021-05-24] MEDS: Apixaban 5 MG TAB PO SCH ×2 (08:33→20:51)
[2021-05-24] MEDS: Carvedilol 6.25 MG TAB PO SCH ×2 (08:38→17:30)
[2021-05-24] MEDS: Cyanocobalamin (Vitamin B-12) 1,000 MCG TAB PO SCH (08:38)
[2021-05-24] MEDS: Aspirin 81 mg Enteric Coated Tablet PO SCH (08:38)
[2021-05-24] MEDS: Lisinopril 20 MG TAB PO SCH ×2 (08:38→20:52)
[2021-05-24] MEDS: Famotidine 20 MG TAB PO SCH ×2 (08:39→20:52)
[2021-05-24] MEDS: Folic Acid 1 MG TAB PO SCH (08:39)
[2021-05-24] MEDS: Multivitamin W/ Minerals 1 TAB PO SCH (08:39)
[2021-05-24] MEDS: Melatonin 3 MG TAB PO SCH (20:51)
[2021-05-24] MEDS: Tamsulosin HCl 0.4 MG CAP PO SCH (20:51)
[2021-05-25] MEDS: Lisinopril 20 MG TAB PO SCH ×2 (08:37→20:49)
[2021-05-25] MEDS: Famotidine 20 MG TAB PO SCH ×2 (08:37→20:49)
[2021-05-25] MEDS: Cyanocobalamin (Vitamin B-12) 1,000 MCG TAB PO SCH (08:37)
[2021-05-25] MEDS: Apixaban 5 MG TAB PO SCH ×2 (08:37→20:49)
[2021-05-25] MEDS: Folic Acid 1 MG TAB PO SCH (08:37)
[2021-05-25] MEDS: Rosuvastatin 10 MG TAB PO SCH (08:37)
[2021-05-25] MEDS: Aspirin 81 mg Enteric Coated Tablet PO SCH (08:37)
[2021-05-25] MEDS: Multivitamin W/ Minerals 1 TAB PO SCH (08:37)
[2021-05-25] MEDS: Carvedilol 6.25 MG TAB PO SCH ×2 (08:37→18:15)
[2021-05-25] MEDS: Melatonin 3 MG TAB PO SCH (20:48)
[2021-05-25] MEDS: Tamsulosin HCl 0.4 MG CAP PO SCH (20:49)
[2021-05-26 07:40] VITALS: BP 144/63; TEMP 97.5
[2021-05-26] MEDS: Folic Acid 1 MG TAB PO SCH (08:37)
[2021-05-26] MEDS: Multivitamin W/ Minerals 1 TAB PO SCH (08:37)
[2021-05-26] MEDS: Apixaban 5 MG TAB PO SCH (08:38)
[2021-05-26] MEDS: Famotidine 20 MG TAB PO SCH (08:38)
[2021-05-26] MEDS: Rosuvastatin 10 MG TAB PO SCH (08:38)
[2021-05-26] MEDS: Cyanocobalamin (Vitamin B-12) 1,000 MCG TAB PO SCH (08:38)
[2021-05-26] MEDS: Lisinopril 20 MG TAB PO SCH (08:38)
[2021-05-26] MEDS: Aspirin 81 mg Enteric Coated Tablet PO SCH (08:42)
[2021-05-26] MEDS: Carvedilol 6.25 MG TAB PO SCH (08:42)
== END 2021-05-26 12:24 | disposition home or self-care (01) | DRG 948 ==
LOC: NAV ACUTE 16:52
PROVIDERS: ADMIT Internal Medicine; ATTEND Internal Medicine
DX: R53.1 Weakness (principal); I48.20 Chronic atrial fibrillation, unspecified; I10 Essential (primary) hypertension; I25.10 Atherosclerotic heart disease of native coronary artery without angina pectoris; K21.9 Gastro-esophageal reflux disease without esophagitis; I48.0 Paroxysmal atrial fibrillation; E78.5 Hyperlipidemia, unspecified; M17.0 Bilateral primary osteoarthritis of knee; F41.9 Anxiety disorder, unspecified; F32.9 Major depressive disorder, single episode, unspecified; N40.0 Benign prostatic hyperplasia without lower urinary tract symptoms; M50.30 Other cervical disc degeneration, unspecified cervical region; R53.81 Other malaise; Z96.653 Presence of artificial knee joint, bilateral; K59.00 Constipation, unspecified; M48.02 Spinal stenosis, cervical region; Z87.891 Personal history of nicotine dependence; Z95.1 Presence of aortocoronary bypass graft; Z98.1 Arthrodesis status; Z86.73 Personal history of transient ischemic attack (TIA), and cerebral infarction without residual deficits
CPT/HCPCS: 36416; 80053; 82565; 85014; 85018; 85025; 85049; Q0162

== ENCOUNTER 2021-08-22 09:59 | Emergency (ER) | payer MEDICARE, BC ==
[2021-08-22 11:14] LABS: Hemoglobin 5.3 g/dL (14.0-18.0); Mean Corpuscular HGB CONC 30.4 g/dL (32.0-36.0); Mean Corpuscular Hemoglobin 29.1 pg (27.0-31.0); Mean Corpuscular Volume 95.8 fL (78.0-98.0); Mean Platelet Volume 8.8 fL (7.4-10.4); Platelet Count 265 thou/uL (130-400); RBC Distribution Width 14.6 % (11.5-14.5); Red Blood Cell (RBC) Count 1.81 mill/uL (4.70-6.10); White Blood Cell (WBC) Count 7.8 thou/uL (4.8-10.8)
[2021-08-22 11:31] LABS: #Basophils 0.1 thou/uL (0.0-0.2); #Eosinphils 0.2 thou/uL (0.0-0.7); #Lymphocytes 0.9 thou/uL (1.20-3.40); #Monocytes 0.6 thou/uL (0.11-0.59); %Basophils 0.7 % (0.0-1.0); %Eosinophils 3.2 % (0.0-10.0); %Lymphocytes 11.1 % (21.0-51.0); %Monocytes 8.3 % (0.0-10.0); %Neutrophils 76.8 % (42.0-75.0)
[2021-08-22 11:34] LABS: ALT (SGPT) 13 U/L (8-55); AST (SGOT) 17 U/L (5-34); Alkaline Phosphatase 70 U/L (40-110); Anion Gap 13 mmol/L (10-20); BUN (Urea Nitrogen) 27 mg/dL (8.4-25.7); Bilirubin, Total 0.2 mg/dL (0.2-1.2); Calc. Creatinine Clearance 0 mL/min (70-130); Calcium 8.2 mg/dL (7.8-10.44); Carbon Dioxide 21 mmol/L (23-31); Chloride 113 mmol/L (98-107); Globulin 2.9 g/dL (2.4-3.5); Glucose 132 mg/dL (83-110); Protein, Total 5.9 g/dL (5.8-8.1); Sodium 144 mmol/L (136-145)
[2021-08-22 11:40] LABS: Bilirubin Negative (Negative); Blood, Urine Moderate (Negative); Glucose, Urine (Dipstick) Negative (Negative); Ketone, Urine Negative (Negative); Leukocyte Negative (Negative); Nitrite Negative (Negative); Protein, Urine (Dipstick) Trace mg/dL (Neg-Trace); Specific Gravity, Urine 1.025 (1.005-1.030); Urobilinogen 0.2 mg/dL (Less than 2); pH, Urine 5.5 (5.0-9.0)
[2021-08-22 11:51] LABS: Clarity SL HAZY (Clear)
[2021-08-22 12:13] LABS: Bacteria/HPF Rare-Few HPF (None Seen); Squamous Epithelial 0-3 HPF (0-3); WBC/HPF 0-3 HPF (0-3)
[2021-08-22] MEDS ORDERED: Sodium Chloride 0.9% 500 ML ONE (12:39)
[2021-08-22 14:57] LABS: SARS-CoV-2 NAA Rapid Test Not Detected (NotDetected)
[2021-08-23 14:53] LABS: Reticulocyte Count 4.7 % (0.5-1.5)
[2021-08-23 15:11] LABS: Iron 17 ug/dL (65-175); Iron Binding Capacity, Total 261 mcg/dL (261-462)
== END 2021-08-22 15:19 | disposition short-term general hospital (02) ==
LOC: NAV ERS 09:59
DX: D64.9 Anemia, unspecified (principal); R44.3 Hallucinations, unspecified; J93.9 Pneumothorax, unspecified; J90 Pleural effusion, not elsewhere classified; R11.0 Nausea; I10 Essential (primary) hypertension; E78.00 Pure hypercholesterolemia, unspecified; E78.5 Hyperlipidemia, unspecified; F17.210 Nicotine dependence, cigarettes, uncomplicated; Z20.822 Contact with and (suspected) exposure to COVID-19; Z79.82 Long term (current) use of aspirin; Z79.01 Long term (current) use of anticoagulants; Z79.899 Other long term (current) drug therapy
CPT/HCPCS: 36430; 51701; 70450; 71045; 80053; 81003; 81015; 82274; 82607; 82746; 83540; 83550; 83605; 84443; 84484; 85025; 85046; 86850; 86900; 86901; 93005; J7030; P9016; U0002

== ENCOUNTER 2021-10-13 13:06 | Inpatient (IN) | payer MEDICARE, BC ==
[2021-10-13 16:13] VITALS: BMI 23.5
[2021-10-13] MEDS ORDERED: Senokot S 8.6-50 MG TAB PO PRN (17:44)
[2021-10-13] MEDS ORDERED: Bisacodyl 10 MG SUPP PR PRN (17:44)
[2021-10-13] MEDS ORDERED: Acetaminophen 325 MG TAB PO PRN (17:44)
[2021-10-13] MEDS ORDERED: Bisacodyl 5 MG TAB PO PRN (17:44)
[2021-10-13] MEDS ORDERED: Ondansetron PF 4 MG/2 ML Vial IVP PRN (17:44)
[2021-10-13] MEDS ORDERED: Acetaminophen 650 MG Suppository PR PRN (17:44)
[2021-10-13] MEDS ORDERED: Ondansetron ODT 4 MG TAB PO PRN (17:44)
[2021-10-13] MEDS ORDERED: Loperamide HCl 2 MG CAP PO PRN ×2 (17:44)
[2021-10-13] MEDS ORDERED: Benzonatate 100 MG CAP PO PRN (17:44)
[2021-10-13 18:13] LABS: #Basophils 0.1 thou/uL (0.0-0.2); #Eosinphils 0.2 thou/uL (0.0-0.7); #Lymphocytes 0.6 thou/uL (1.20-3.40); #Monocytes 0.7 thou/uL (0.11-0.59); #Neutrophils 7.1 thou/uL (1.40-6.50); %Basophils 1.2 % (0.0-1.0); %Eosinophils 2.2 % (0.0-10.0); %Lymphocytes 6.6 % (21.0-51.0); %Monocytes 8.2 % (0.0-10.0); %Neutrophils 81.9 % (42.0-75.0); Hemoglobin 7.8 g/dL (14.0-18.0); Mean Corpuscular HGB CONC 29.9 g/dL (32.0-36.0); Mean Corpuscular Hemoglobin 26.7 pg (27.0-31.0); Mean Corpuscular Volume 89.4 fL (78.0-98.0); Mean Platelet Volume 7.3 fL (7.4-10.4); Platelet Count 393 thou/uL (130-400); RBC Distribution Width 16.1 % (11.5-14.5); Red Blood Cell (RBC) Count 2.94 mill/uL (4.70-6.10); White Blood Cell (WBC) Count 8.7 thou/uL (4.8-10.8)
[2021-10-13] MEDS ORDERED: hydrOXYzine 25 MG TAB PO PRN (18:22)
[2021-10-13 18:45] LABS: Bilirubin Negative (Negative); Blood, Urine Negative (Negative); Clarity Slightly Cloudy (Clear); Glucose, Urine (Dipstick) Negative (Negative); Ketone, Urine Negative (Negative); Leukocyte Small (Negative); Nitrite Negative (Negative); Protein, Urine (Dipstick) 30 mg/dL (Neg-Trace); Specific Gravity, Urine 1.025 (1.005-1.030)
[2021-10-13 18:51] LABS: Bacteria/HPF 3+ HPF (None Seen); RBC/HPF 0-3 HPF (0-3); Squamous Epithelial 0-3 HPF (0-3); WBC/HPF 21-50 HPF (0-3)
[2021-10-13 19:16] LABS: Calcium 7.8 mg/dL (7.8-10.44); Chloride 103 mmol/L (98-107); Sodium 137 mmol/L (136-145)
[2021-10-13 19:24] LABS: SARS-CoV-2 NAA Rapid Test Not Detected (NotDetected)
[2021-10-13 19:30] LABS: ALT (SGPT) 27 U/L (8-55); AST (SGOT) 32 U/L (5-34); Albumin 2.1 g/dL (3.4-4.8); Alkaline Phosphatase 147 U/L (40-110); Anion Gap 11 mmol/L (10-20); BUN (Urea Nitrogen) 10 mg/dL (8.4-25.7); Bilirubin, Total 0.4 mg/dL (0.2-1.2); Calc. Creatinine Clearance 98 mL/min (70-130); Carbon Dioxide 26 mmol/L (23-31); Globulin 3.7 g/dL (2.4-3.5); Glucose 141 mg/dL (83-110); Protein, Total 5.8 g/dL (5.8-8.1)
[2021-10-13] MEDS ORDERED: Melatonin 3 MG TAB PO SCH (21:00)
[2021-10-13] MEDS ORDERED: Tamsulosin HCl 0.4 MG CAP PO SCH (21:00)
[2021-10-13] MEDS: Lisinopril 20 MG TAB PO SCH (21:09)
[2021-10-13] MEDS: Famotidine 20 MG TAB PO SCH (21:09)
[2021-10-13] MEDS: Apixaban 2.5 MG TAB PO SCH (21:09)
[2021-10-14] MEDS ORDERED: Levothyroxine Sodium 25 MCG TAB PO SCH (06:00)
[2021-10-14 06:37] LABS: ALT (SGPT) 25 U/L (8-55); AST (SGOT) 38 U/L (5-34); Albumin 2.1 g/dL (3.4-4.8); Alkaline Phosphatase 150 U/L (40-110); Anion Gap 8 mmol/L (10-20); BUN (Urea Nitrogen) 11 mg/dL (8.4-25.7); Bilirubin, Total 0.3 mg/dL (0.2-1.2); Calc. Creatinine Clearance 95 mL/min (70-130); Carbon Dioxide 28 mmol/L (23-31); Chloride 104 mmol/L (98-107); Globulin 3.9 g/dL (2.4-3.5); Potassium 3.9 mmol/L (3.5-5.1); Sodium 136 mmol/L (136-145)
[2021-10-14 06:48] LABS: Glucose 111 mg/dL (83-110)
[2021-10-14 06:53] LABS: Hemoglobin 7.5 g/dL (14.0-18.0); MDiff Complete? YES; Mean Corpuscular HGB CONC 31.2 g/dL (32.0-36.0); Mean Corpuscular Hemoglobin 27.4 pg (27.0-31.0); Mean Corpuscular Volume 87.7 fL (78.0-98.0); Mean Platelet Volume 6.4 fL (7.4-10.4); Platelet Count 347 thou/uL (130-400); RBC Distribution Width 15.8 % (11.5-14.5); Red Blood Cell (RBC) Count 2.72 mill/uL (4.70-6.10); White Blood Cell (WBC) Count 8.9 thou/uL (4.8-10.8)
[2021-10-14 06:54] LABS: Anisocytosis SLIGHT = 6-15 cells (100X) (0-5/hpf); Hypochromia SLIGHT = 6-15 cells (100X) (0-5/hpf); Lymphocytes 15 % (21-51); Monocytes 8 % (0-10); Neutrophil 77 % (42-75); Platelet Morphology Comment Appears Adequate
[2021-10-14 07:49] VITALS: TEMP 98.4
[2021-10-14] MEDS ORDERED: Calcium Carbonate 600 MG + Vit D TAB PO SCH (08:00)
[2021-10-14] MEDS: Famotidine 20 MG TAB PO SCH (08:15)
[2021-10-14] MEDS: Lisinopril 20 MG TAB PO SCH (08:16)
[2021-10-14] MEDS: Apixaban 2.5 MG TAB PO SCH (08:17)
[2021-10-14] MEDS: Carvedilol 6.25 MG TAB PO SCH ×2 (08:18→16:54)
[2021-10-14] MEDS ORDERED: Aspirin 81 mg Enteric Coated Tablet PO SCH (09:00)
[2021-10-14] MEDS ORDERED: Amlodipine 10 MG TAB PO SCH (09:00)
[2021-10-14] MEDS ORDERED: Furosemide 20 MG TAB PO SCH (09:00)
[2021-10-14] MEDS ORDERED: Rosuvastatin 10 MG TAB PO SCH (09:00)
[2021-10-14] MEDS ORDERED: Cyanocobalamin (Vitamin B-12) 1,000 MCG TAB PO SCH (09:00)
[2021-10-14] MEDS ORDERED: Ferrous Sulfate 325 MG TAB PO SCH (09:00)
[2021-10-14] MEDS ORDERED: Allopurinol 100 MG TAB PO SCH (09:00)
[2021-10-14] MEDS ORDERED: Multivitamin W/ Minerals 1 TAB PO SCH (09:00)
[2021-10-14] MEDS ORDERED: Nitrofurantoin Monohyd/M-Cryst 100 MG CAP PO SCH ×2 (13:15→21:00)
[2021-10-14 16:39] VITALS: BP 144/64
== END 2021-10-14 16:59 | disposition swing bed (61) | DRG 812 ==
LOC: NAV ACUTE 15:21
PROVIDERS: ADMIT Family Medicine; ATTEND Family Medicine
DX: D64.9 Anemia, unspecified (principal); N39.0 Urinary tract infection, site not specified; I48.91 Unspecified atrial fibrillation; I25.10 Atherosclerotic heart disease of native coronary artery without angina pectoris; K21.9 Gastro-esophageal reflux disease without esophagitis; E78.5 Hyperlipidemia, unspecified; I10 Essential (primary) hypertension; Z20.822 Contact with and (suspected) exposure to COVID-19; M47.9 Spondylosis, unspecified; Z95.1 Presence of aortocoronary bypass graft; Z79.899 Other long term (current) drug therapy; Z79.01 Long term (current) use of anticoagulants; Z79.890 Hormone replacement therapy
CPT/HCPCS: 36415; 70450; 80053; 81001; 82140; 82607; 82746; 85025; 87077; 87086; 87186; U0002

== ENCOUNTER 2021-10-14 16:35 | Inpatient (IN) | payer MEDICARE, BC ==
[2021-10-14] MEDS ORDERED: Calcium Carbonate 500 MG ChewTAB PO PRN (18:04)
[2021-10-14] MEDS ORDERED: Loperamide HCl 2 MG CAP PO PRN ×2 (18:04)
[2021-10-14] MEDS ORDERED: Guaifenesin DM 100-10/5 ML UDCUP PO PRN (18:04)
[2021-10-14] MEDS ORDERED: Artificial Tear Sol 15 ML BOT EA EYE PRN (18:04)
[2021-10-14] MEDS ORDERED: Benzonatate 100 MG CAP PO PRN (18:04)
[2021-10-14] MEDS ORDERED: Ondansetron PF 4 MG/2 ML Vial IVP PRN (18:04)
[2021-10-14] MEDS ORDERED: Sodium Chloride 0.65% Nasal 44 ML BOT EA NARE PRN (18:04)
[2021-10-14] MEDS ORDERED: Ondansetron ODT 4 MG TAB PO PRN (18:04)
[2021-10-14] MEDS ORDERED: Senokot S 8.6-50 MG TAB PO PRN (18:04)
[2021-10-14] MEDS ORDERED: Bisacodyl 5 MG TAB PO PRN (18:04)
[2021-10-14] MEDS ORDERED: Cepastat Lozenges 1 LOZ PO PRN (18:04)
[2021-10-14] MEDS ORDERED: Bisacodyl 10 MG SUPP PR PRN (18:04)
[2021-10-14] MEDS ORDERED: Acetaminophen 650 MG Suppository PR PRN (18:04)
[2021-10-14] MEDS: Nitrofurantoin Monohyd/M-Cryst 100 MG CAP PO SCH (20:26)
[2021-10-14] MEDS: Famotidine 20 MG TAB PO SCH (20:26)
[2021-10-15] MEDS ORDERED: Acetaminophen 325 MG TAB PO PRN (05:00)
[2021-10-15] MEDS: Levothyroxine Sodium 25 MCG TAB PO SCH (05:17)
[2021-10-15] MEDS ORDERED: Benzonatate 100 MG CAP PO PRN (06:00)
[2021-10-15 06:31] LABS: Anion Gap 9 mmol/L (10-20); BUN (Urea Nitrogen) 9 mg/dL (8.4-25.7); Calc. Creatinine Clearance 105 mL/min (70-130); Calcium 8.2 mg/dL (7.8-10.44); Carbon Dioxide 28 mmol/L (23-31); Chloride 101 mmol/L (98-107); Glucose 105 mg/dL (83-110); Potassium 3.7 mmol/L (3.5-5.1); Sodium 134 mmol/L (136-145)
[2021-10-15 06:33] LABS: MDiff Complete? YES
[2021-10-15 06:42] LABS: Hemoglobin 7.5 g/dL (14.0-18.0); Mean Corpuscular HGB CONC 30.1 g/dL (32.0-36.0); Mean Corpuscular Hemoglobin 26.5 pg (27.0-31.0); Mean Corpuscular Volume 88.1 fL (78.0-98.0); Mean Platelet Volume 6.6 fL (7.4-10.4); Platelet Count 383 thou/uL (130-400); RBC Distribution Width 16.2 % (11.5-14.5); Red Blood Cell (RBC) Count 2.83 mill/uL (4.70-6.10); White Blood Cell (WBC) Count 8.6 thou/uL (4.8-10.8)
[2021-10-15 06:44] LABS: Band 1 % (5-11); Lymphocytes 12 % (21-51); Neutrophil 84 % (42-75)
[2021-10-15 06:45] LABS: Anisocytosis SLIGHT = 6-15 cells (100X) (0-5/hpf); Hypochromia SLIGHT = 6-15 cells (100X) (0-5/hpf); Monocytes 3 % (0-10)
[2021-10-15 06:46] LABS: Platelet Morphology Comment Appears Adequate
[2021-10-15] MEDS: Carvedilol 6.25 MG TAB PO SCH ×2 (08:20→16:34)
[2021-10-15] MEDS: Calcium Carbonate 600 MG + Vit D TAB PO SCH (08:20)
[2021-10-15] MEDS: Apixaban 2.5 MG TAB PO SCH ×2 (08:21→20:41)
[2021-10-15] MEDS: Allopurinol 100 MG TAB PO SCH (08:21)
[2021-10-15] MEDS: Amlodipine 10 MG TAB PO SCH (08:21)
[2021-10-15] MEDS: Furosemide 20 MG TAB PO SCH (08:22)
[2021-10-15] MEDS: Lisinopril 20 MG TAB PO SCH ×2 (08:22→20:37)
[2021-10-15] MEDS: Famotidine 20 MG TAB PO SCH ×2 (08:22→20:37)
[2021-10-15] MEDS: Aspirin 81 mg Enteric Coated Tablet PO SCH (08:22)
[2021-10-15] MEDS: Cyanocobalamin (Vitamin B-12) 1,000 MCG TAB PO SCH (08:22)
[2021-10-15] MEDS: Nitrofurantoin Monohyd/M-Cryst 100 MG CAP PO SCH ×2 (08:23→20:38)
[2021-10-15] MEDS: FERROUS FUMARATE 324 MG PO SCH (08:23)
[2021-10-15] MEDS: Rosuvastatin 10 MG TAB PO SCH (08:23)
[2021-10-15] MEDS: Multivitamin W/ Minerals 1 TAB PO SCH (08:23)
[2021-10-15] MEDS ORDERED: hydrOXYzine 25 MG TAB PO PRN (09:00)
[2021-10-15] MEDS: Acetaminophen 325 MG TAB PO PRN (17:21)
[2021-10-15] MEDS: Melatonin 3 MG TAB PO SCH (20:37)
[2021-10-15] MEDS: Tamsulosin HCl 0.4 MG CAP PO SCH (20:38)
[2021-10-16] MEDS: Levothyroxine Sodium 25 MCG TAB PO SCH (05:44)
[2021-10-16] MEDS: Rosuvastatin 10 MG TAB PO SCH (08:23)
[2021-10-16] MEDS: Nitrofurantoin Monohyd/M-Cryst 100 MG CAP PO SCH ×2 (08:23→20:33)
[2021-10-16] MEDS: Calcium Carbonate 600 MG + Vit D TAB PO SCH (08:23)
[2021-10-16] MEDS: Furosemide 20 MG TAB PO SCH (08:23)
[2021-10-16] MEDS: Multivitamin W/ Minerals 1 TAB PO SCH (08:23)
[2021-10-16] MEDS: Famotidine 20 MG TAB PO SCH ×2 (08:23→20:33)
[2021-10-16] MEDS: Allopurinol 100 MG TAB PO SCH (08:24)
[2021-10-16] MEDS: Amlodipine 10 MG TAB PO SCH (08:24)
[2021-10-16] MEDS: Carvedilol 6.25 MG TAB PO SCH ×2 (08:25→18:42)
[2021-10-16] MEDS: Cyanocobalamin (Vitamin B-12) 1,000 MCG TAB PO SCH (08:25)
[2021-10-16] MEDS: Apixaban 2.5 MG TAB PO SCH ×2 (08:25→20:33)
[2021-10-16] MEDS: Lisinopril 20 MG TAB PO SCH ×2 (08:25→20:33)
[2021-10-16] MEDS: Aspirin 81 mg Enteric Coated Tablet PO SCH (08:26)
[2021-10-16] MEDS: FERROUS FUMARATE 324 MG PO SCH (08:26)
[2021-10-16] MEDS: Tamsulosin HCl 0.4 MG CAP PO SCH (20:33)
[2021-10-16] MEDS: Melatonin 3 MG TAB PO SCH (20:33)
[2021-10-17] MEDS: Levothyroxine Sodium 25 MCG TAB PO SCH (05:36)
[2021-10-17] MEDS: Rosuvastatin 10 MG TAB PO SCH (08:18)
[2021-10-17] MEDS: Nitrofurantoin Monohyd/M-Cryst 100 MG CAP PO SCH ×2 (08:19→20:13)
[2021-10-17] MEDS: Aspirin 81 mg Enteric Coated Tablet PO SCH (08:19)
[2021-10-17] MEDS: Carvedilol 6.25 MG TAB PO SCH ×2 (08:19→17:13)
[2021-10-17] MEDS: Calcium Carbonate 600 MG + Vit D TAB PO SCH (08:19)
[2021-10-17] MEDS: Lisinopril 20 MG TAB PO SCH ×2 (08:20→20:13)
[2021-10-17] MEDS: Allopurinol 100 MG TAB PO SCH (08:20)
[2021-10-17] MEDS: Cyanocobalamin (Vitamin B-12) 1,000 MCG TAB PO SCH (08:20)
[2021-10-17] MEDS: Acetaminophen 325 MG TAB PO PRN ×2 (08:20→18:26)
[2021-10-17] MEDS: Apixaban 2.5 MG TAB PO SCH ×2 (08:21→20:14)
[2021-10-17] MEDS: Multivitamin W/ Minerals 1 TAB PO SCH (08:21)
[2021-10-17] MEDS: Furosemide 20 MG TAB PO SCH (08:22)
[2021-10-17] MEDS: Famotidine 20 MG TAB PO SCH ×2 (08:22→20:14)
[2021-10-17] MEDS: Amlodipine 10 MG TAB PO SCH (08:23)
[2021-10-17] MEDS: FERROUS FUMARATE 324 MG PO SCH (10:35)
[2021-10-17] MEDS: Tamsulosin HCl 0.4 MG CAP PO SCH (20:13)
[2021-10-17] MEDS: Melatonin 3 MG TAB PO SCH (20:14)
[2021-10-18 05:13] VITALS: BMI 23.9
[2021-10-18] MEDS: Levothyroxine Sodium 25 MCG TAB PO SCH (05:42)
[2021-10-18] MEDS: Calcium Carbonate 600 MG + Vit D TAB PO SCH (08:13)
[2021-10-18] MEDS: Carvedilol 6.25 MG TAB PO SCH ×2 (08:17→16:22)
[2021-10-18] MEDS: FERROUS FUMARATE 324 MG PO SCH (08:17)
[2021-10-18] MEDS: Amlodipine 10 MG TAB PO SCH (08:18)
[2021-10-18] MEDS: Allopurinol 100 MG TAB PO SCH (08:18)
[2021-10-18] MEDS: Lisinopril 20 MG TAB PO SCH ×2 (08:19→20:19)
[2021-10-18] MEDS: Furosemide 20 MG TAB PO SCH (08:19)
[2021-10-18] MEDS: Aspirin 81 mg Enteric Coated Tablet PO SCH (08:19)
[2021-10-18] MEDS: Cyanocobalamin (Vitamin B-12) 1,000 MCG TAB PO SCH (08:19)
[2021-10-18] MEDS: Apixaban 2.5 MG TAB PO SCH ×2 (08:19→20:19)
[2021-10-18] MEDS: Famotidine 20 MG TAB PO SCH ×2 (08:19→20:19)
[2021-10-18] MEDS: Multivitamin W/ Minerals 1 TAB PO SCH (08:20)
[2021-10-18] MEDS: Nitrofurantoin Monohyd/M-Cryst 100 MG CAP PO SCH ×2 (08:20→20:19)
[2021-10-18] MEDS: Rosuvastatin 10 MG TAB PO SCH (08:20)
[2021-10-18] MEDS: Melatonin 3 MG TAB PO SCH (20:19)
[2021-10-18] MEDS: Tamsulosin HCl 0.4 MG CAP PO SCH (20:19)
[2021-10-19] MEDS: Levothyroxine Sodium 25 MCG TAB PO SCH (05:32)
[2021-10-19] MEDS: Calcium Carbonate 600 MG + Vit D TAB PO SCH (08:05)
[2021-10-19] MEDS: Famotidine 20 MG TAB PO SCH ×2 (08:05→20:30)
[2021-10-19] MEDS: Apixaban 2.5 MG TAB PO SCH ×2 (08:05→20:31)
[2021-10-19] MEDS: Lisinopril 20 MG TAB PO SCH ×2 (08:05→20:31)
[2021-10-19] MEDS: Allopurinol 100 MG TAB PO SCH (08:06)
[2021-10-19] MEDS: Carvedilol 6.25 MG TAB PO SCH ×2 (08:06→16:24)
[2021-10-19] MEDS: Amlodipine 10 MG TAB PO SCH (08:06)
[2021-10-19] MEDS: Nitrofurantoin Monohyd/M-Cryst 100 MG CAP PO SCH ×2 (08:06→20:31)
[2021-10-19] MEDS: Multivitamin W/ Minerals 1 TAB PO SCH (08:06)
[2021-10-19] MEDS: Furosemide 20 MG TAB PO SCH (08:07)
[2021-10-19] MEDS: Aspirin 81 mg Enteric Coated Tablet PO SCH (08:07)
[2021-10-19] MEDS: Rosuvastatin 10 MG TAB PO SCH (08:07)
[2021-10-19] MEDS: Cyanocobalamin (Vitamin B-12) 1,000 MCG TAB PO SCH (08:07)
[2021-10-19] MEDS: FERROUS FUMARATE 324 MG PO SCH (08:08)
[2021-10-19] MEDS: Acetaminophen 325 MG TAB PO PRN (16:24)
[2021-10-19] MEDS: Tamsulosin HCl 0.4 MG CAP PO SCH (20:31)
[2021-10-19] MEDS: Melatonin 3 MG TAB PO SCH (20:31)
[2021-10-20] MEDS: Levothyroxine Sodium 25 MCG TAB PO SCH (05:27)
[2021-10-20] MEDS: Calcium Carbonate 600 MG + Vit D TAB PO SCH (08:10)
[2021-10-20] MEDS: Allopurinol 100 MG TAB PO SCH (08:10)
[2021-10-20] MEDS: Cyanocobalamin (Vitamin B-12) 1,000 MCG TAB PO SCH (08:10)
[2021-10-20] MEDS: Multivitamin W/ Minerals 1 TAB PO SCH (08:10)
[2021-10-20] MEDS: Amlodipine 10 MG TAB PO SCH (08:11)
[2021-10-20] MEDS: Aspirin 81 mg Enteric Coated Tablet PO SCH (08:11)
[2021-10-20] MEDS: Carvedilol 6.25 MG TAB PO SCH ×2 (08:11→17:32)
[2021-10-20] MEDS: Famotidine 20 MG TAB PO SCH ×2 (08:11→21:16)
[2021-10-20] MEDS: Nitrofurantoin Monohyd/M-Cryst 100 MG CAP PO SCH ×2 (08:11→21:17)
[2021-10-20] MEDS: Furosemide 20 MG TAB PO SCH (08:12)
[2021-10-20] MEDS: Apixaban 2.5 MG TAB PO SCH ×2 (08:12→21:17)
[2021-10-20] MEDS: Lisinopril 20 MG TAB PO SCH ×2 (08:12→21:17)
[2021-10-20] MEDS: Rosuvastatin 10 MG TAB PO SCH (08:16)
[2021-10-20] MEDS: FERROUS FUMARATE 324 MG PO SCH (08:16)
[2021-10-20 11:02] LABS: SARS-CoV-2 PCR by NAA Not Detected (NotDetected)
[2021-10-20] MEDS: Melatonin 3 MG TAB PO SCH (21:16)
[2021-10-20] MEDS: Tamsulosin HCl 0.4 MG CAP PO SCH (21:17)
[2021-10-21] MEDS: Levothyroxine Sodium 25 MCG TAB PO SCH (05:39)
[2021-10-21 06:27] LABS: Anion Gap 9 mmol/L (10-20); BUN (Urea Nitrogen) 8 mg/dL (8.4-25.7); Calc. Creatinine Clearance 101 mL/min (70-130); Calcium 8.6 mg/dL (7.8-10.44); Chloride 100 mmol/L (98-107); Glucose 98 mg/dL (83-110); Potassium 3.2 mmol/L (3.5-5.1); Sodium 134 mmol/L (136-145)
[2021-10-21 06:32] LABS: #Eosinphils 0.2 thou/uL (0.0-0.7); #Lymphocytes 0.8 thou/uL (1.20-3.40); #Monocytes 0.6 thou/uL (0.11-0.59); #Neutrophils 5.6 thou/uL (1.40-6.50); %Basophils 0.6 % (0.0-1.0); %Eosinophils 3.1 % (0.0-10.0); %Lymphocytes 11.4 % (21.0-51.0); %Monocytes 8.7 % (0.0-10.0); %Neutrophils 78.3 % (42.0-75.0); Hemoglobin 8.1 g/dL (14.0-18.0); Mean Corpuscular HGB CONC 30.7 g/dL (32.0-36.0); Mean Corpuscular Hemoglobin 26.6 pg (27.0-31.0); Mean Corpuscular Volume 86.5 fL (78.0-98.0); Platelet Count 402 thou/uL (130-400); RBC Distribution Width 15.9 % (11.5-14.5); Red Blood Cell (RBC) Count 3.06 mill/uL (4.70-6.10); White Blood Cell (WBC) Count 7.3 thou/uL (4.8-10.8)
[2021-10-21 06:35] LABS: Carbon Dioxide 28 mmol/L (23-31)
[2021-10-21] MEDS: Calcium Carbonate 600 MG + Vit D TAB PO SCH (08:03)
[2021-10-21] MEDS: Carvedilol 6.25 MG TAB PO SCH ×2 (08:04→16:43)
[2021-10-21] MEDS: Allopurinol 100 MG TAB PO SCH (08:06)
[2021-10-21] MEDS: FERROUS FUMARATE 324 MG PO SCH (08:06)
[2021-10-21] MEDS: Amlodipine 10 MG TAB PO SCH (08:07)
[2021-10-21] MEDS: Apixaban 2.5 MG TAB PO SCH ×2 (08:07→20:27)
[2021-10-21] MEDS: Aspirin 81 mg Enteric Coated Tablet PO SCH (08:07)
[2021-10-21] MEDS: Cyanocobalamin (Vitamin B-12) 1,000 MCG TAB PO SCH (08:07)
[2021-10-21] MEDS: Nitrofurantoin Monohyd/M-Cryst 100 MG CAP PO SCH (08:08)
[2021-10-21] MEDS: Famotidine 20 MG TAB PO SCH ×2 (08:08→20:27)
[2021-10-21] MEDS: Multivitamin W/ Minerals 1 TAB PO SCH (08:08)
[2021-10-21] MEDS: Lisinopril 20 MG TAB PO SCH ×2 (08:08→20:28)
[2021-10-21] MEDS: Rosuvastatin 10 MG TAB PO SCH (08:08)
[2021-10-21] MEDS: Furosemide 20 MG TAB PO SCH (08:08)
[2021-10-21] MEDS: Potassium Chloride 20 MEQ TAB PO SCH (16:43)
[2021-10-21] MEDS: Tamsulosin HCl 0.4 MG CAP PO SCH (20:27)
[2021-10-21] MEDS: Melatonin 3 MG TAB PO SCH (20:27)
[2021-10-22] MEDS: Levothyroxine Sodium 25 MCG TAB PO SCH (05:34)
[2021-10-22] MEDS: Calcium Carbonate 600 MG + Vit D TAB PO SCH (08:03)
[2021-10-22] MEDS: Carvedilol 6.25 MG TAB PO SCH ×2 (08:04→16:33)
[2021-10-22] MEDS: FERROUS FUMARATE 324 MG PO SCH (08:05)
[2021-10-22] MEDS: Potassium Chloride 20 MEQ TAB PO SCH (08:05)
[2021-10-22] MEDS: Apixaban 2.5 MG TAB PO SCH ×2 (08:06→20:22)
[2021-10-22] MEDS: Aspirin 81 mg Enteric Coated Tablet PO SCH (08:06)
[2021-10-22] MEDS: Allopurinol 100 MG TAB PO SCH (08:06)
[2021-10-22] MEDS: Amlodipine 10 MG TAB PO SCH (08:06)
[2021-10-22] MEDS: Lisinopril 20 MG TAB PO SCH ×2 (08:07→20:22)
[2021-10-22] MEDS: Multivitamin W/ Minerals 1 TAB PO SCH (08:07)
[2021-10-22] MEDS: Furosemide 20 MG TAB PO SCH (08:07)
[2021-10-22] MEDS: Cyanocobalamin (Vitamin B-12) 1,000 MCG TAB PO SCH (08:07)
[2021-10-22] MEDS: Rosuvastatin 10 MG TAB PO SCH (08:07)
[2021-10-22] MEDS: Famotidine 20 MG TAB PO SCH ×2 (08:07→20:21)
[2021-10-22 10:40] LABS: Anion Gap 13 mmol/L (10-20); BUN (Urea Nitrogen) 10 mg/dL (8.4-25.7); Calc. Creatinine Clearance 85 mL/min (70-130); Carbon Dioxide 24 mmol/L (23-31); Chloride 102 mmol/L (98-107); Glucose 126 mg/dL (83-110); Magnesium 1.8 mg/dL (1.6-2.6); Potassium 3.9 mmol/L (3.5-5.1); Sodium 135 mmol/L (136-145)
[2021-10-22] MEDS: Tamsulosin HCl 0.4 MG CAP PO SCH (20:21)
[2021-10-22] MEDS: Melatonin 3 MG TAB PO SCH (20:21)
[2021-10-23] MEDS: Levothyroxine Sodium 25 MCG TAB PO SCH (05:33)
[2021-10-23 08:04] VITALS: BP 120/57; TEMP 98.9
[2021-10-23] MEDS: Multivitamin W/ Minerals 1 TAB PO SCH (08:14)
[2021-10-23] MEDS: Calcium Carbonate 600 MG + Vit D TAB PO SCH (08:14)
[2021-10-23] MEDS: Famotidine 20 MG TAB PO SCH (08:14)
[2021-10-23] MEDS: Allopurinol 100 MG TAB PO SCH (08:14)
[2021-10-23] MEDS: Lisinopril 20 MG TAB PO SCH (08:15)
[2021-10-23] MEDS: Amlodipine 10 MG TAB PO SCH (08:15)
[2021-10-23] MEDS: Apixaban 2.5 MG TAB PO SCH (08:15)
[2021-10-23] MEDS: Aspirin 81 mg Enteric Coated Tablet PO SCH (08:15)
[2021-10-23] MEDS: Rosuvastatin 10 MG TAB PO SCH (08:15)
[2021-10-23] MEDS: Cyanocobalamin (Vitamin B-12) 1,000 MCG TAB PO SCH (08:15)
[2021-10-23] MEDS: Carvedilol 6.25 MG TAB PO SCH (08:15)
[2021-10-23] MEDS: Furosemide 20 MG TAB PO SCH (08:16)
[2021-10-23] MEDS: FERROUS FUMARATE 324 MG PO SCH (08:28)
== END 2021-10-23 10:35 | disposition home or self-care (01) | DRG 812 ==
LOC: NAV ACUTE 17:02
PROVIDERS: ADMIT Family Medicine; ATTEND Family Medicine
DX: D64.9 Anemia, unspecified (principal); Z20.822 Contact with and (suspected) exposure to COVID-19; R53.81 Other malaise; E67.8 Other specified hyperalimentation; I48.91 Unspecified atrial fibrillation; I25.10 Atherosclerotic heart disease of native coronary artery without angina pectoris; E03.9 Hypothyroidism, unspecified; K21.9 Gastro-esophageal reflux disease without esophagitis; M1A.9XX0 Chronic gout, unspecified, without tophus (tophi); M51.36 Other intervertebral disc degeneration, lumbar region; F01.50 Vascular dementia, unspecified severity, without behavioral disturbance, psychotic disturbance, mood disturbance, and anxiety; M47.816 Spondylosis without myelopathy or radiculopathy, lumbar region; E78.5 Hyperlipidemia, unspecified; I10 Essential (primary) hypertension; Z95.1 Presence of aortocoronary bypass graft; Z98.890 Other specified postprocedural states; Z79.01 Long term (current) use of anticoagulants; Z79.899 Other long term (current) drug therapy
CPT/HCPCS: 80048; 83735; 85025; U0003; U0005

== ENCOUNTER 2022-02-14 12:30 | Emergency (ER) | payer MEDICARE, BC ==
[2022-02-14] MEDS ORDERED: Proparacaine 0.5% Opth 15 ML BOT ONE (12:48)
[2022-02-14] MEDS ORDERED: Fluorescein Opthalmic Strip ONE (12:48)
[2022-02-14] MEDS ORDERED: valACYclovir 500 MG TAB ONE (13:19)
== END 2022-02-14 13:40 | disposition home or self-care (01) ==
LOC: NAV ERS 12:30
DX: B02.9 Zoster without complications (principal); I10 Essential (primary) hypertension; E78.5 Hyperlipidemia, unspecified; E78.00 Pure hypercholesterolemia, unspecified; Z87.891 Personal history of nicotine dependence; Z79.01 Long term (current) use of anticoagulants; Z79.82 Long term (current) use of aspirin; Z79.899 Other long term (current) drug therapy
CPT/HCPCS: 99283

== ENCOUNTER 2022-04-24 06:48 | Emergency (ER) | payer MEDICARE, BC ==
[2022-04-24] MEDS ORDERED: Morphine 4 MG/ML VIAL ONE ×2 (07:23→08:43)
[2022-04-24] MEDS ORDERED: Ondansetron PF 4 MG/2 ML Vial ONE (07:23)
[2022-04-24 07:42] LABS: #Basophils 0.1 thou/uL (0.0-0.2); #Eosinphils 0.9 thou/uL (0.0-0.7); #Lymphocytes 1.2 thou/uL (1.20-3.40); #Monocytes 0.6 thou/uL (0.11-0.59); %Basophils 1.3 % (0.0-1.0); %Eosinophils 12.6 % (0.0-10.0); %Lymphocytes 18.3 % (21.0-51.0); %Monocytes 8.9 % (0.0-10.0); %Neutrophils 58.8 % (42.0-75.0); Hemoglobin 8.3 g/dL (14.0-18.0); Mean Corpuscular HGB CONC 29.4 g/dL (32.0-36.0); Mean Corpuscular Volume 95.2 fL (78.0-98.0); Mean Platelet Volume 7.8 fL (7.4-10.4); Platelet Count 270 thou/uL (130-400); Red Blood Cell (RBC) Count 2.97 mill/uL (4.70-6.10); White Blood Cell (WBC) Count 6.8 thou/uL (4.8-10.8)
[2022-04-24 07:47] LABS: ALT (SGPT) 9 U/L (8-55); AST (SGOT) 15 U/L (5-34); Albumin 2.8 g/dL (3.4-4.8); Alkaline Phosphatase 74 U/L (40-110); Anion Gap 14 mmol/L (10-20); BUN (Urea Nitrogen) 13 mg/dL (8.4-25.7); Bilirubin, Total 0.1 mg/dL (0.2-1.2); Calc. Creatinine Clearance 0 mL/min (70-130); Calcium 8.9 mg/dL (7.8-10.44); Carbon Dioxide 25 mmol/L (23-31); Chloride 104 mmol/L (98-107); Globulin 3.3 g/dL (2.4-3.5); Glucose 102 mg/dL (83-110); Potassium 4.6 mmol/L (3.5-5.1); Protein, Total 6.1 g/dL (5.8-8.1); Sodium 138 mmol/L (136-145)
[2022-04-24 08:03] LABS: Hypochromia SLIGHT = 6-15 cells (100X) (0-5/hpf); MDiff Complete? YES
== END 2022-04-24 08:59 | disposition short-term general hospital (02) ==
LOC: NAV ERS 06:48
DX: S72.041A Displaced fracture of base of neck of right femur, initial encounter for closed fracture (principal); W19.XXXA Unspecified fall, initial encounter; I10 Essential (primary) hypertension; E78.00 Pure hypercholesterolemia, unspecified; E78.5 Hyperlipidemia, unspecified; Z79.899 Other long term (current) drug therapy; Z87.891 Personal history of nicotine dependence
CPT/HCPCS: 71045; 71250; 72170; 80053; 85025; 93005; 96374; 96375; 96376; J2270; J2405